=== PATIENT | male | born 1960 | race African-American/Black ===

== ENCOUNTER → 2017-05-23 | Outpatient (CLI) | payer MEDICARE, MEDICAID ==
[2017-05-23 17:30] LABS: HEMATOCRIT 38.2 % (37.9-51.0); HGB HCT DIFFERENCE -2.2; MEAN CORPUSCULAR HEMOGLOBIN 24.8 pg (27.0-33.4); MEAN CORPUSCULAR HGB CONC 31.4 g/dL (32.0-36.0); MEAN CORPUSCULAR VOLUME 79 fl (80-97); RED BLOOD COUNT 4.82 10^6/uL (4.35-5.55)
[2017-05-23 17:47] LABS: APPEARANCE,URINE CLEAR; BILIRUBIN,URINE NEGATIVE (NEGATIVE); GLUCOSE, URINE NEGATIVE (NEGATIVE); KETONES,URINE NEGATIVE (NEGATIVE); LEUKOCYTE ESTERASE,URINE NEGATIVE (NEGATIVE); NITRITE,URINE NEGATIVE (NEGATIVE); PROTEIN,URINE NEGATIVE (NEGATIVE); URINE SPECIFIC GRAVITY 1.013; UROBILINOGEN,URINE NEGATIVE mg/dL (<2.0)
[2017-05-23 17:55] LABS: ANION GAP 14 (5-19); BLOOD UREA NITROGEN 26 mg/dL (7-20); CALCIUM 9.3 mg/dL (8.4-10.2); CARBON DIOXIDE 23 mmol/L (22-30); CHLORIDE 107 mmol/L (98-107); GLUCOSE 126 mg/dL (75-110); POTASSIUM 4.4 mmol/L (3.6-5.0); SODIUM 143.9 mmol/L (137-145)
== END ==
LOC: OD 16:18
PROVIDERS: ATTEND Internal Medicine Nephrology
DX: I12.9 Hypertensive chronic kidney disease with stage 1 through stage 4 chronic kidney disease, or unspecified chronic kidney disease (principal); N18.3 Chronic kidney disease, stage 3 (moderate); M10.00 Idiopathic gout, unspecified site
CPT/HCPCS: 36415; 80048; 81001; 85027

== ENCOUNTER → 2018-05-08 | Outpatient (CLI) | payer MEDICARE, MEDICAID ==
[2018-05-08 13:47] LABS: HEMATOCRIT 36.3 % (37.9-51.0); HEMOGLOBIN 11.6 g/dL (13.5-17.0); MEAN CORPUSCULAR HGB CONC 31.9 g/dL (32.0-36.0); MEAN CORPUSCULAR VOLUME 78 fl (80-97); PLATELET COUNT 228 10^3/uL (150-450); RED BLOOD COUNT 4.64 10^6/uL (4.35-5.55); RED CELL DISTRIBUTION WIDTH 17.4 % (11.5-14.0); WHITE BLOOD COUNT 5.8 10^3/uL (4.0-10.5)
[2018-05-08 13:50] LABS: APPEARANCE,URINE CLEAR; BILIRUBIN,URINE NEGATIVE (NEGATIVE); COLOR,URINE YELLOW; GLUCOSE, URINE NEGATIVE (NEGATIVE); KETONES,URINE NEGATIVE (NEGATIVE); LEUKOCYTE ESTERASE,URINE NEGATIVE (NEGATIVE); NITRITE,URINE NEGATIVE (NEGATIVE); PROTEIN,URINE NEGATIVE (NEGATIVE); URINE SPECIFIC GRAVITY 1.016
[2018-05-08 14:09] LABS: ANION GAP 10 (5-19); BLOOD UREA NITROGEN 19 mg/dL (7-20); CALCIUM 9.1 mg/dL (8.4-10.2); CARBON DIOXIDE 25 mmol/L (22-30); CHLORIDE 111 mmol/L (98-107); GLUCOSE 83 mg/dL (75-110); POTASSIUM 4.7 mmol/L (3.6-5.0)
== END ==
LOC: OD 12:47
PROVIDERS: ATTEND Internal Medicine Nephrology
DX: I12.9 Hypertensive chronic kidney disease with stage 1 through stage 4 chronic kidney disease, or unspecified chronic kidney disease (principal); N18.3 Chronic kidney disease, stage 3 (moderate); M10.00 Idiopathic gout, unspecified site
CPT/HCPCS: 36415; 80048; 81001; 85027

== ENCOUNTER → 2018-07-16 | Outpatient (CLI) | payer MEDICARE, MEDICAID ==
--- NOTE | 2018-07-16 13:47 | RADIOLOGY REPORT (SQ) ---
EXAM DESCRIPTION: CHEST PA/LATERAL COMPLETED DATE/TIME: 07/16/2018 12:32 pm REASON FOR STUDY: COPD, J44.9 COMPARISON: 08/30/2012 EXAM PARAMETERS: NUMBER OF VIEWS: two views TECHNIQUE: Digital Frontal and Lateral radiographic views of the chest acquired. RADIATION DOSE: NA LIMITATIONS: Low lung volumes. FINDINGS: LUNGS AND PLEURA: No opacities, masses or pneumothorax. No pleural effusion. MEDIASTINUM AND HILAR STRUCTURES: No masses or contour abnormalities. HEART AND VASCULAR STRUCTURES: Heart normal size. No evidence for failure. BONES: No acute findings. HARDWARE: None in the chest. OTHER: No other significant finding. IMPRESSION: Negative chest allowing for low lung volumes. TECHNICAL DOCUMENTATION: JOB ID: [id number] [employer]- All Rights Reserved Reading location - IP/workstation name: [email or web address]
== END ==
LOC: OD 12:13
PROVIDERS: ATTEND Physician Assistant
DX: J44.9 Chronic obstructive pulmonary disease, unspecified (principal)
CPT/HCPCS: 71046

== ENCOUNTER → 2019-06-02 | Outpatient (CLI) | payer MEDICARE, MEDICAID ==
[2019-06-02 15:45] LABS: HEMATOCRIT 37.1 % (37.9-51.0); HEMOGLOBIN 11.7 g/dL (13.5-17.0); MEAN CORPUSCULAR HEMOGLOBIN 24.3 pg (27.0-33.4); MEAN CORPUSCULAR HGB CONC 31.7 g/dL (32.0-36.0); MEAN CORPUSCULAR VOLUME 77 fl (80-97); PLATELET COUNT 236 10^3/uL (150-450); RED BLOOD COUNT 4.83 10^6/uL (4.35-5.55); RED CELL DISTRIBUTION WIDTH 18.2 % (11.5-14.0)
[2019-06-02 15:46] LABS: APPEARANCE,URINE CLEAR; BILIRUBIN,URINE NEGATIVE (NEGATIVE); COLOR,URINE YELLOW; GLUCOSE, URINE NEGATIVE (NEGATIVE); KETONES,URINE NEGATIVE (NEGATIVE); LEUKOCYTE ESTERASE,URINE NEGATIVE (NEGATIVE); NITRITE,URINE NEGATIVE (NEGATIVE); PROTEIN,URINE NEGATIVE (NEGATIVE); URINE SPECIFIC GRAVITY 1.016
[2019-06-02 16:03] LABS: ANION GAP 9 (5-19); BLOOD UREA NITROGEN 22 mg/dL (7-20); CALCIUM 8.8 mg/dL (8.4-10.2); CARBON DIOXIDE 25 mmol/L (22-30); CHLORIDE 109 mmol/L (98-107); GLUCOSE 95 mg/dL (75-110); POTASSIUM 4.5 mmol/L (3.6-5.0); SODIUM 142.7 mmol/L (137-145)
== END ==
LOC: OD 15:00
PROVIDERS: ATTEND Physician Assistant Medical
DX: I12.9 Hypertensive chronic kidney disease with stage 1 through stage 4 chronic kidney disease, or unspecified chronic kidney disease (principal); N18.2 Chronic kidney disease, stage 2 (mild); M10.00 Idiopathic gout, unspecified site
CPT/HCPCS: 36415; 80048; 81001; 85027

== ENCOUNTER 2019-07-20 15:38 | Emergency (ER) | payer MEDICARE, MEDICAID ==
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
[2019-07-20 16:31] LABS: ABSOLUTE BASOPHILS # (AUTO) 0.1 10^3/uL (0.0-0.2); ABSOLUTE EOSINOPHILS # (AUTO) 0.2 10^3/uL (0.0-0.6); ABSOLUTE LYMPHOCYTES (AUTO) 1.3 10^3/uL (0.5-4.7); ABSOLUTE MONOCYTES (AUTO) 0.3 10^3/uL (0.1-1.4); ABSOLUTE NEUT (AUTO) 4.1 10^3/uL (1.7-8.2); BASOPHILS % (AUTO) 0.9 % (0-2); HEMATOCRIT 37.5 % (37.9-51.0); HEMOGLOBIN 11.9 g/dL (13.5-17.0); LYMPHOCYTES % (AUTO) 22.1 % (13-45); MEAN CORPUSCULAR HEMOGLOBIN 24.6 pg (27.0-33.4); MEAN CORPUSCULAR HGB CONC 31.7 g/dL (32.0-36.0); MEAN CORPUSCULAR VOLUME 78 fl (80-97); PLATELET COUNT 198 10^3/uL (150-450); RED BLOOD COUNT 4.83 10^6/uL (4.35-5.55); RED CELL DISTRIBUTION WIDTH 17.8 % (11.5-14.0); TOTAL CELLS COUNTED % (AUTO) 100 %; WHITE BLOOD COUNT 6.1 10^3/uL (4.0-10.5)
[2019-07-20 16:37] LABS: APPEARANCE,URINE CLEAR; BILIRUBIN,URINE NEGATIVE (NEGATIVE); COLOR,URINE YELLOW; GLUCOSE, URINE NEGATIVE (NEGATIVE); KETONES,URINE NEGATIVE (NEGATIVE); LEUKOCYTE ESTERASE,URINE NEGATIVE (NEGATIVE); NITRITE,URINE NEGATIVE (NEGATIVE); PROTEIN,URINE NEGATIVE (NEGATIVE); URINE SPECIFIC GRAVITY 1.014; UROBILINOGEN,URINE NEGATIVE mg/dL (<2.0)
[2019-07-20 16:49] LABS: ALBUMIN 3.9 g/dL (3.5-5.0); ALKALINE PHOSPHATASE 104 U/L (38-126); ANION GAP 7 (5-19); ASPARTATE AMINO TRANSFERASE 18 U/L (17-59); BILIRUBIN,DIRECT 0.3 mg/dL (0.0-0.4); BILIRUBIN,TOTAL 0.4 mg/dL (0.2-1.3); BLOOD UREA NITROGEN 24 mg/dL (7-20); CARBON DIOXIDE 26 mmol/L (22-30); CHLORIDE 106 mmol/L (98-107); GLUCOSE 124 mg/dL (75-110); POTASSIUM 4.5 mmol/L (3.6-5.0); TOTAL PROTEIN 7.4 g/dL (6.3-8.2)
[2019-07-20 16:50] LABS: URINE AMPHETAMINES SCREEN NEGATIVE; URINE BARBITURATES SCREEN NEGATIVE; URINE BENZODIAZEPINES SCREEN NEGATIVE; URINE COCAINE SCREEN NEGATIVE; URINE MARIJUANA (THC) SCREEN NEGATIVE; URINE METHADONE SCREEN NEGATIVE; URINE PHENCYCLIDINE SCREEN NEGATIVE
--- NOTE | 2019-07-20 17:59 | RADIOLOGY REPORT (SQ) ---
EXAM DESCRIPTION: CT HEAD WITHOUT COMPLETED DATE/TIME: 07/20/2019 5:37 pm REASON FOR STUDY: dizzy COMPARISON: None. TECHNIQUE: Axial images acquired through the brain without intravenous contrast. Images reviewed wi th bone, brain and subdural windows. Additional sagittal and coronal reconstructions were generated. Images stored on PACS. All CT scanners at this facility use dose modulation, iterative reconstruction, and/or weight based d osing when appropriate to reduce radiation dose to as low as reasonably achievable (ALARA). [facility]: Dose Right [facility]: CareDose [facility]: Dose Right [facility]: Teradose 4D [facility]: MET Tech RADIATION DOSE: CT Rad equipment meets quality standard of care and radiation dose reduction techniq ues were employed. CTDIvol: 53.2 mGy. DLP: 1097 mGy-cm. mGy. LIMITATIONS: None. FINDINGS: VENTRICLES: Normal size and contour. CEREBRUM: No masses. No hemorrhage. No midline shift. No evidence for acute infarction. Normal gra y/white matter differentiation. No areas of low density in the white matter. CEREBELLUM: No masses. No hemorrhage. No alteration of density. No evidence for acute infarction. EXTRAAXIAL SPACES: No fluid collections. No masses. ORBITS AND GLOBE: No intra- or extraconal masses. Normal contour of globe without masses. CALVARIUM: No fracture. PARANASAL SINUSES: Mucous retention cyst in the left maxillary sinus. SOFT TISSUES: No mass or hematoma. OTHER: No other significant finding. IMPRESSION: Left maxillary sinus disease with no acute intracranial imaging findings. EVIDENCE OF ACUTE STROKE: NO. COMMENT: Quality ID # [id number]: Final reports with documentation of one or more dose reduction techniques (e.g., Automated exposure control, adjustment of the mA and/or kV according to patient size, use of iterative reconstruction technique) TECHNICAL DOCUMENTATION: JOB ID: [id number] [employer]- All Rights Reserved Reading location - IP/workstation name: [email or web address]
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
[2019-07-20 19:07] VITALS: BP 150/90
--- NOTE | 2019-07-20 23:16 | EKG REPORT ---
SEVERITY:- NORMAL ECG - SINUS RHYTHM : Confirmed by: Jennifer Miller 20-Jul-2019 23:15:35
== END 2019-07-20 19:09 | disposition home or self-care (01) ==
LOC: ER 15:38
DX: J01.00 Acute maxillary sinusitis, unspecified (principal); R42 Dizziness and giddiness; R00.1 Bradycardia, unspecified; R53.1 Weakness; I50.9 Heart failure, unspecified; E78.00 Pure hypercholesterolemia, unspecified; I11.0 Hypertensive heart disease with heart failure; J44.9 Chronic obstructive pulmonary disease, unspecified; Z91.013 Allergy to seafood; Z88.0 Allergy status to penicillin
CPT/HCPCS: 36415; 70450; 80053; 80307; 81001; 82962; 83690; 84484; 85025; 93005; 93010; 99284

== ENCOUNTER 2019-08-26 10:47 | Emergency (ER) | payer MEDICARE, MEDICAID ==
--- NOTE | 2019-08-26 11:16 | ER Document Report ---
ED Medical Screen (RME) - General Chief Complaint: Shortness Of Breath Stated Complaint: WHEEZING,FEVER,HEADACHE,CHILLS Time Seen by Provider: 08/26/19 11:11 Primary Care Provider: NISHA RAMIREZ MD [Primary Care Provider] - Follow up as needed Mode of Arrival: Ambulatory Information source: Patient Notes: This 59-year-old male with history of COPD and asthma presents emergency department with cough and wheeze for the past week. Reports he has had increased shortness of breath since his CPAP machine broke 1 week ago. He reports is not due to be replaced until September. He denies chest pain. He denies fever vomiting diarrhea. Denies history of CHF. Respiratory rate even unlabored no wheeze noted. Message left for project manager/team coach inquiring possibility of helping this man replace his CPAP machine I have greeted and performed a rapid initial assessment of this patient. A comprehensive ED assessment and evaluation of the patient, analysis of test results and completion of the medical decision making process will be conducted by additional ED providers. Dictation of this chart was performed using voice recognition software; therefore, there may be some unintended grammatical errors. TRAVEL OUTSIDE OF THE [place] IN LAST 30 DAYS: No - Related Data Allergies/Adverse Reactions: Penicillins Allergy (Unknown, Verified 07/20/19 15:39) shellfish derived Allergy (Verified 07/20/19 15:39) Past Medical History - Social History Chew tobacco use (# tins/day): No Frequency of alcohol use: None Drug Abuse: None - Past Medical History Cardiac Medical History: Reports: Hx Congestive Heart Failure, Hx Hypercholesterolemia, Hx Hypertension Pulmonary Medical History: Reports: Hx Bronchitis, Hx COPD GI Medical History: Reports: Hx Gastroesophageal Reflux Disease, Hx Hiatal Hernia, Hx Ulcer Musculoskeltal Medical History: Reports Hx Arthritis, Reports Hx Gout, Reports Hx Musculoskeletal Deformity, Reports Hx Musculoskeletal Trauma Psychiatric Medical History: Reports: Hx Anxiety Traumatic Medical History: Reports: Hx Fractures - patella Past Surgical History: Reports: Hx Orthopedic Surgery - BL ankles, Hx Tonsillectomy - Immunizations Hx Diphtheria, Pertussis, Tetanus Vaccination: No Physical Exam - Vital signs Vitals: Temp Pulse Resp BP Pulse Ox 98.8 F 96 22 H 163/77 H 96 08/26/19 10:51 08/26/19 10:51 08/26/19 10:51 08/26/19 10:51 08/26/19 10:51 Course - Vital Signs Vital signs: Temp Pulse Resp BP Pulse Ox 98.8 F 96 22 H 163/77 H 96 08/26/19 10:51 08/26/19 10:51 08/26/19 10:51 08/26/19 10:51 08/26/19 10:51 Doctor's Discharge - Discharge Referrals: NISHA RAMIREZ MD [Primary Care Provider] - Follow up as needed
[2019-08-26 12:06] LABS: ABSOLUTE BASOPHILS # (AUTO) 0.1 10^3/uL (0.0-0.2); ABSOLUTE LYMPHOCYTES (AUTO) 0.7 10^3/uL (0.5-4.7); ABSOLUTE MONOCYTES (AUTO) 0.5 10^3/uL (0.1-1.4); ABSOLUTE NEUT (AUTO) 8.4 10^3/uL (1.7-8.2); BASOPHILS % (AUTO) 0.7 % (0-2); EOSINOPHILS % (AUTO) 0.4 % (0-6); HEMATOCRIT 37.3 % (37.9-51.0); HEMOGLOBIN 11.9 g/dL (13.5-17.0); MEAN CORPUSCULAR VOLUME 78 fl (80-97); MONOCYTES % (AUTO) 5.4 % (3-13); PLATELET COUNT 177 10^3/uL (150-450); RED BLOOD COUNT 4.78 10^6/uL (4.35-5.55); RED CELL DISTRIBUTION WIDTH 17.9 % (11.5-14.0); SEGMENTED NEUTROPHILS % (AUTO) 86.5 % (42-78); TOTAL CELLS COUNTED % (AUTO) 100 %; WHITE BLOOD COUNT 9.8 10^3/uL (4.0-10.5)
[2019-08-26 12:09] LABS: APPEARANCE,URINE CLEAR; BILIRUBIN,URINE NEGATIVE (NEGATIVE); COLOR,URINE YELLOW; GLUCOSE, URINE NEGATIVE (NEGATIVE); KETONES,URINE NEGATIVE (NEGATIVE); LEUKOCYTE ESTERASE,URINE NEGATIVE (NEGATIVE); NITRITE,URINE NEGATIVE (NEGATIVE); PROTEIN,URINE NEGATIVE (NEGATIVE); URINE SPECIFIC GRAVITY 1.018
[2019-08-26 12:30] LABS: ALBUMIN 3.9 g/dL (3.5-5.0); ALKALINE PHOSPHATASE 89 U/L (38-126); ANION GAP 9 (5-19); ASPARTATE AMINO TRANSFERASE 30 U/L (17-59); BILIRUBIN,DIRECT 0.1 mg/dL (0.0-0.4); BILIRUBIN,TOTAL 0.4 mg/dL (0.2-1.3); BLOOD UREA NITROGEN 26 mg/dL (7-20); CALCIUM 8.9 mg/dL (8.4-10.2); CARBON DIOXIDE 27 mmol/L (22-30); CHLORIDE 103 mmol/L (98-107); GLUCOSE 186 mg/dL (75-110); POTASSIUM 4.1 mmol/L (3.6-5.0); TOTAL PROTEIN 7.3 g/dL (6.3-8.2)
--- NOTE | 2019-08-26 12:58 | RADIOLOGY REPORT (SQ) ---
EXAM DESCRIPTION: CHEST 2 VIEWS COMPLETED DATE/TIME: 08/26/2019 12:13 pm REASON FOR STUDY: sob COMPARISON: 08/30/2012 EXAM PARAMETERS: NUMBER OF VIEWS: two views TECHNIQUE: Digital Frontal and Lateral radiographic views of the chest acquired. RADIATION DOSE: NA LIMITATIONS: none FINDINGS: LUNGS AND PLEURA: Mild pulmonary edema. Questionable focal opacification in the medial ri ght base. MEDIASTINUM AND HILAR STRUCTURES: No masses or contour abnormalities. HEART AND VASCULAR STRUCTURES: Cardiomegaly. BONES: No acute findings. HARDWARE: None in the chest. OTHER: No other significant finding. IMPRESSION: Cardiomegaly with mild pulmonary edema. Cannot exclude limited right lower lobe pneumon ia. TECHNICAL DOCUMENTATION: JOB ID: [id number] [employer]- All Rights Reserved Reading location - IP/workstation name: [email or web address]
[2019-08-26] MEDS ORDERED: IPRATROPIUM/ALBUTEROL 0.5-2.5 MG/3 ML AMPUL NEB ONE (14:04)
[2019-08-26] MEDS ORDERED: PREDNISONE 20 MG TABLET PO ONE (14:04)
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
[2019-08-26] MEDS ORDERED: DOXYCYCLINE HYCLATE 100 MG TABLET PO ONE (16:32)
[2019-08-26 17:09] VITALS: BP 162/82
--- NOTE | 2019-08-26 19:06 | EKG REPORT ---
SEVERITY:- NORMAL ECG - SINUS RHYTHM : Confirmed by: Christiano Fermin MD 26-Aug-2019 19:05:45
--- NOTE | 2019-08-26 19:06 | EKG REPORT ---
SEVERITY:- NORMAL ECG - SINUS RHYTHM : Confirmed by: Christiano Fermin MD 26-Aug-2019 19:05:55
== END 2019-08-26 16:50 | disposition home or self-care (01) ==
LOC: ER 10:47
DX: J81.0 Acute pulmonary edema (principal); G47.33 Obstructive sleep apnea (adult) (pediatric); Z91.19 Patient's noncompliance with other medical treatment and regimen; J44.9 Chronic obstructive pulmonary disease, unspecified; I11.9 Hypertensive heart disease without heart failure; R91.8 Other nonspecific abnormal finding of lung field; R05 Cough; R06.02 Shortness of breath; Z91.013 Allergy to seafood; I10 Essential (primary) hypertension; Z88.0 Allergy status to penicillin; Z87.891 Personal history of nicotine dependence; D72.829 Elevated white blood cell count, unspecified
CPT/HCPCS: 93005; 94640; 99285; 36415; 85025; 80053; 81001; 83880; 71046; 93010; 94660; A9270 ×2; J7512; J7620

== ENCOUNTER → 2019-09-13 | Outpatient (CLI) | payer MEDICARE, MEDICAID ==
[2019-09-13 11:35] LABS: ABSOLUTE BASOPHILS # (AUTO) 0.1 10^3/uL (0.0-0.2); ABSOLUTE EOSINOPHILS # (AUTO) 0.1 10^3/uL (0.0-0.6); ABSOLUTE MONOCYTES (AUTO) 0.4 10^3/uL (0.1-1.4); EOSINOPHILS % (AUTO) 2.4 % (0-6); HEMOGLOBIN 11.1 g/dL (13.5-17.0); LYMPHOCYTES % (AUTO) 18.6 % (13-45); MEAN CORPUSCULAR HEMOGLOBIN 24.8 pg (27.0-33.4); MEAN CORPUSCULAR HGB CONC 31.7 g/dL (32.0-36.0); MEAN CORPUSCULAR VOLUME 78 fl (80-97); MONOCYTES % (AUTO) 7.4 % (3-13); PLATELET COUNT 201 10^3/uL (150-450); RED BLOOD COUNT 4.48 10^6/uL (4.35-5.55); SEGMENTED NEUTROPHILS % (AUTO) 70.6 % (42-78); TOTAL CELLS COUNTED % (AUTO) 100 %; WHITE BLOOD COUNT 5.6 10^3/uL (4.0-10.5)
[2019-09-13 11:45] LABS: APPEARANCE,URINE CLEAR; BILIRUBIN,URINE NEGATIVE (NEGATIVE); COLOR,URINE YELLOW; GLUCOSE, URINE NEGATIVE (NEGATIVE); KETONES,URINE NEGATIVE (NEGATIVE); LEUKOCYTE ESTERASE,URINE NEGATIVE (NEGATIVE); NITRITE,URINE NEGATIVE (NEGATIVE); PROTEIN,URINE NEGATIVE (NEGATIVE); URINE SPECIFIC GRAVITY 1.014
[2019-09-13 11:57] LABS: ANION GAP 6 (5-19); BLOOD UREA NITROGEN 18 mg/dL (7-20); CALCIUM 8.9 mg/dL (8.4-10.2); CARBON DIOXIDE 28 mmol/L (22-30); CHLORIDE 106 mmol/L (98-107); GLUCOSE 103 mg/dL (75-110); IRON(TIBC) 54.7 ug/dL (49-181); PHOSPHORUS 3.6 mg/dL (2.5-4.5); POTASSIUM 4.6 mmol/L (3.6-5.0)
== END ==
LOC: OD 11:16
PROVIDERS: ATTEND Physician Assistant Medical
DX: I12.9 Hypertensive chronic kidney disease with stage 1 through stage 4 chronic kidney disease, or unspecified chronic kidney disease (principal); N18.3 Chronic kidney disease, stage 3 (moderate); D64.9 Anemia, unspecified; M10.00 Idiopathic gout, unspecified site
CPT/HCPCS: 36415; 80048; 81001; 82728; 83540; 83550; 83735; 83970; 84100; 85025

== ENCOUNTER → 2019-12-27 | Outpatient (CLI) | payer MEDICARE, MEDICAID ==
[2019-12-27 11:32] LABS: ABSOLUTE EOSINOPHILS # (AUTO) 0.2 10^3/uL (0.0-0.6); ABSOLUTE LYMPHOCYTES (AUTO) 0.9 10^3/uL (0.5-4.7); ABSOLUTE MONOCYTES (AUTO) 0.4 10^3/uL (0.1-1.4); ABSOLUTE NEUT (AUTO) 4.5 10^3/uL (1.7-8.2); BASOPHILS % (AUTO) 0.7 % (0-2); EOSINOPHILS % (AUTO) 3.2 % (0-6); HEMATOCRIT 35.5 % (37.9-51.0); HEMOGLOBIN 11.5 g/dL (13.5-17.0); LYMPHOCYTES % (AUTO) 14.9 % (13-45); MEAN CORPUSCULAR HEMOGLOBIN 25.4 pg (27.0-33.4); MEAN CORPUSCULAR HGB CONC 32.4 g/dL (32.0-36.0); MEAN CORPUSCULAR VOLUME 78 fl (80-97); MONOCYTES % (AUTO) 6.2 % (3-13); PLATELET COUNT 216 10^3/uL (150-450); RED BLOOD COUNT 4.53 10^6/uL (4.35-5.55); TOTAL CELLS COUNTED % (AUTO) 100 %
[2019-12-27 11:46] LABS: ANION GAP 8 (5-19); BLOOD UREA NITROGEN 24 mg/dL (7-20); CALCIUM 8.8 mg/dL (8.4-10.2); CARBON DIOXIDE 26 mmol/L (22-30); CHLORIDE 109 mmol/L (98-107); GLUCOSE 107 mg/dL (75-110); IRON(TIBC) 49.9 ug/dL (49-181); PHOSPHORUS 3.4 mg/dL (2.5-4.5); POTASSIUM 4.3 mmol/L (3.6-5.0)
[2019-12-27 12:14] LABS: APPEARANCE,URINE CLEAR; BILIRUBIN,URINE NEGATIVE (NEGATIVE); COLOR,URINE YELLOW; GLUCOSE, URINE NEGATIVE (NEGATIVE); KETONES,URINE NEGATIVE (NEGATIVE); LEUKOCYTE ESTERASE,URINE NEGATIVE (NEGATIVE); NITRITE,URINE NEGATIVE (NEGATIVE); PROTEIN,URINE NEGATIVE (NEGATIVE); URINE SPECIFIC GRAVITY 1.016; UROBILINOGEN,URINE NEGATIVE mg/dL (<2.0)
== END ==
LOC: OD 10:55
PROVIDERS: ATTEND Physician Assistant Medical
DX: I12.9 Hypertensive chronic kidney disease with stage 1 through stage 4 chronic kidney disease, or unspecified chronic kidney disease (principal); N18.3 Chronic kidney disease, stage 3 (moderate); D64.9 Anemia, unspecified
CPT/HCPCS: 36415; 80048; 81001; 82728; 83540; 83550; 83735; 83970; 84100; 85025

== ENCOUNTER 2020-08-24 11:55 | Emergency (ER) | payer MEDICARE, MEDICAID ==
[2020-08-24] MEDS ORDERED: NORMAL SALINE 1000 ML 1,000 ML IV ONE ×2 (12:11→13:51)
--- NOTE | 2020-08-24 12:14 | ER Document Report ---
ED Medical Screen (RME) - General Chief Complaint: Urinary Frequency Stated Complaint: EXCESSIVE URINATION,DRY MOUTH Primary Care Provider: NISHA RAMIREZ MD [Primary Care Provider] - Follow up as needed Mode of Arrival: Ambulatory Information source: Patient Notes: 60-year-old male presented to ED for frequent urination x2 weeks dry mouth. He states that his primary care doctor put him on antibiotics and prednisone. He states his sugar has been running high every day. His Accu-Chek right now is 383. He is not on any counter medications. He is never been diagnosed as diabetic. Patient is alert oriented respirations regular nonlabored at this time. I have greeted and performed a rapid initial assessment of this patient. A comprehensive ED assessment and evaluation of the patient, analysis of test results and completion of medical decision making process will be conducted by an additional ED providers. TRAVEL OUTSIDE OF THE [place] IN LAST 30 DAYS: No - Related Data Allergies/Adverse Reactions: Penicillins Allergy (Unknown, Verified 07/20/19 15:39) shellfish derived Allergy (Verified 07/20/19 15:39) Past Medical History - Past Medical History Cardiac Medical History: Reports: Hx Congestive Heart Failure, Hx Hypercholesterolemia, Hx Hypertension Pulmonary Medical History: Reports: Hx Bronchitis, Hx COPD GI Medical History: Reports: Hx Gastroesophageal Reflux Disease, Hx Hiatal Hernia, Hx Ulcer Musculoskeltal Medical History: Reports Hx Arthritis, Reports Hx Gout, Reports Hx Musculoskeletal Deformity, Reports Hx Musculoskeletal Trauma Psychiatric Medical History: Reports: Hx Anxiety Traumatic Medical History: Reports: Hx Fractures - patella Past Surgical History: Reports: Hx Orthopedic Surgery - BL ankles, Hx Tonsillectomy - Immunizations Hx Diphtheria, Pertussis, Tetanus Vaccination: No Physical Exam - Vital signs Vitals: Temp Pulse Resp BP Pulse Ox 98.2 F 56 L 20 155/82 H 96 08/24/20 12:08/24/20 12:08/24/20 12:08/24/20 12:08/24/20 12:01 Course - Vital Signs Vital signs: Temp Pulse Resp BP Pulse Ox 98.2 F 56 L 20 155/82 H 96 08/24/20 12:08/24/20 12:01 08/24/20 12:01 08/24/20 12:01 08/24/20 12:01 Doctor's Discharge - Discharge Referrals: NISHA RAMIREZ MD [Primary Care Provider] - Follow up as needed
[2020-08-24 12:50] LABS: ABSOLUTE EOSINOPHILS # (AUTO) 0.2 10^3/uL (0.0-0.6); ABSOLUTE LYMPHOCYTES (AUTO) 1.2 10^3/uL (0.5-4.7); ABSOLUTE MONOCYTES (AUTO) 0.5 10^3/uL (0.1-1.4); ABSOLUTE NEUT (AUTO) 5.6 10^3/uL (1.7-8.2); BASOPHILS % (AUTO) 0.6 % (0-2); HEMATOCRIT 40.5 % (37.9-51.0); HEMOGLOBIN 13.1 g/dL (13.5-17.0); LYMPHOCYTES % (AUTO) 15.8 % (13-45); MEAN CORPUSCULAR HEMOGLOBIN 25.5 pg (27.0-33.4); MEAN CORPUSCULAR HGB CONC 32.4 g/dL (32.0-36.0); MEAN CORPUSCULAR VOLUME 79 fl (80-97); MONOCYTES % (AUTO) 6.4 % (3-13); PLATELET COUNT 227 10^3/uL (150-450); RED BLOOD COUNT 5.14 10^6/uL (4.35-5.55); RED CELL DISTRIBUTION WIDTH 17.2 % (11.5-14.0); SEGMENTED NEUTROPHILS % (AUTO) 74.2 % (42-78); TOTAL CELLS COUNTED % (AUTO) 100 %; WHITE BLOOD COUNT 7.5 10^3/uL (4.0-10.5)
[2020-08-24 12:51] LABS: VENOUS BLOOD PCO2 46.6 mmHg (35-63); VENOUS BLOOD PH 7.35 (7.30-7.42)
[2020-08-24 12:53] LABS: APPEARANCE,URINE CLEAR; BILIRUBIN,URINE NEGATIVE (NEGATIVE); COLOR,URINE YELLOW; GLUCOSE, URINE >=500 mg/dL (NEGATIVE); KETONES,URINE NEGATIVE (NEGATIVE); LEUKOCYTE ESTERASE,URINE NEGATIVE (NEGATIVE); NITRITE,URINE NEGATIVE (NEGATIVE); PROTEIN,URINE 100 mg/dL (NEGATIVE); URINE SPECIFIC GRAVITY 1.017
[2020-08-24 13:08] LABS: ALBUMIN 4.4 g/dL (3.5-5.0); ALKALINE PHOSPHATASE 123 U/L (38-126); ANION GAP 11 (5-19); ASPARTATE AMINO TRANSFERASE 25 U/L (17-59); BILIRUBIN,DIRECT 0.2 mg/dL (0.0-0.4); BILIRUBIN,TOTAL 0.5 mg/dL (0.2-1.3); BLOOD UREA NITROGEN 30 mg/dL (7-20); CALCIUM 9.4 mg/dL (8.4-10.2); CARBON DIOXIDE 25 mmol/L (22-30); CHLORIDE 103 mmol/L (98-107); GLUCOSE 385 mg/dL (75-110); POTASSIUM 4.6 mmol/L (3.6-5.0); TOTAL PROTEIN 7.9 g/dL (6.3-8.2)
[2020-08-24] MEDS ORDERED: INSULIN REG, HUMAN 100 UNIT/ML 3 ML VIAL (PYX) SUBCUT ONE ×2 (13:52→15:42)
--- NOTE | 2020-08-24 13:55 | ER Document Report ---
ED General - General Chief Complaint: High Blood Sugar Stated Complaint: EXCESSIVE URINATION,DRY MOUTH Time Seen by Provider: 08/24/20 12:54 Primary Care Provider: NISHA RAMIREZ MD [Primary Care Provider] - Follow up as needed Mode of Arrival: Ambulatory TRAVEL OUTSIDE OF THE [place] IN LAST 30 DAYS: No - HPI Notes: Chief complaint: Blurred vision, generalized weakness, frequent urination and excessive thirst for 2 weeks History of present illness: 60 old obese male with history of hypertension and COPD but no known history of diabetes mellitus followed by by Dr. Ramirez structure to come here by his doctor after he called the office reporting 2-week history of blurred vision, generalized weakness, frequent urination and excessive thirst accompanied by about a 15 pound weight loss. Positive family history of diabetes mellitus type 2. - Related Data Allergies/Adverse Reactions: Penicillins Allergy (Unknown, Verified 07/20/19 15:39) shellfish derived Allergy (Verified 07/20/19 15:39) Home Medications: Losartan, Atenolol, Spiriva Past Medical History - General Information source: Patient, Relative - Social History Smoking Status: Never Smoker Frequency of alcohol use: None Drug Abuse: None Family History: Reviewed & Not Pertinent, Arthritis, CAD, DM, Hyperlipidemia, Hypertension, Malignancy, Thyroid Disfunction - Past Medical History Cardiac Medical History: Reports: Hx Congestive Heart Failure, Hx Hypercholesterolemia, Hx Hypertension Pulmonary Medical History: Reports: Hx Bronchitis, Hx COPD Endocrine Medical History: Denies: Hx Diabetes Mellitus Type 1, Hx Diabetes Mellitus Type 2 GI Medical History: Reports: Hx Gastroesophageal Reflux Disease, Hx Hiatal Hernia, Hx Ulcer Musculoskeletal Medical History: Reports Hx Arthritis, Reports Hx Gout, Reports Hx Musculoskeletal Deformity, Reports Hx Musculoskeletal Trauma Psychiatric Medical History: Reports: Hx Anxiety Traumatic Medical History: Reports: Hx Fractures - patella Past Surgical History: Reports: Hx Orthopedic Surgery - BL ankles, Hx Tonsillectomy - Immunizations Hx Diphtheria, Pertussis, Tetanus Vaccination: No Review of Systems - Review of Systems Notes: Constitutional: Negative for fever. HENT: Negative for sore throat. Eyes: Blurred vision. Cardiovascular: Negative for chest pain. Respiratory: Negative for shortness of breath. Gastrointestinal: Negative for abdominal pain, vomiting or diarrhea. Genitourinary: Negative for dysuria. Musculoskeletal: Negative for back pain. Skin: Negative for rash. Neurological: Negative for headaches, focal weakness or numbness. 10 point ROS negative except as marked above and in HPI. Physical Exam - Vital signs Vitals: Temp Pulse Resp BP Pulse Ox 98.2 F 56 L 20 155/82 H 96 08/24/20 12:01 08/24/20 12:01 08/24/20 12:01 08/24/20 12:01 08/24/20 12:01 - Notes Notes: GENERAL: Obese male approximately stated age appearing in no acute distress. SKIN: Good turgor no rashes. HEAD: Normocephalic atraumatic. EYES: PERRLA. EOMI. Conjunctivae and sclerae clear. EARS: CANALS AND TMS CLEAR. NOSE: CLEAR. MOUTH: Tacky oral mucosa. Good dentition. No stridor or edema. No drooling. NECK: Supple. No masses or thyromegaly. No adenopathy. Carotids 2+ without bruits. No JVD. BACK: Symmetrical without tenderness. CHEST: Respirations unlabored. Breath sounds clear and symmetrical. HEART: Regular rhythm. No murmur gallop or rub. ABDOMEN: Morbid obesity. Soft nontender without masses, organomegaly or rebound. Bowel sounds normally active. No bruits. GENITALIA: Deferred. EXTREMITIES: No edema. No calf tenderness. Cap refill less than 1.5 seconds. Dorsalis pedis and posterior tibial pulses 3+ and symmetrical. NEUROLOGICAL: GCS 15. Alert and oriented x3. Normal gait. Fluent speech. Cranial nerves II through XII intact. Sensorimotor and cerebellar normal. Normal tone. PSYCHIATRIC: Appropriate affect. Course - Re-evaluation Re-evalutation: 08/24/20 15:53 Patient has apparent new onset type 2 diabetes. Venous pH is normal. Bicarb is normal. Initial blood sugar 385. Patient looks mildly dehydrated otherwise appears very stable. He is not vomiting. He is receiving 2 L of normal saline IV will get some subcu insulin to get his sugar down below 300. Anticipate he can be managed as an outpatient with initiation of metformin and follow-up with primary care physician. I have paged his cardiac nurse specialist, Dr. Ramirez and waiting for return call at this time. 08/24/20 17:40 Blood sugar is down to 200. Patient feels fine wants to go home. Findings were discussed with his cardiac nurse specialist Dr. Ramirez who agrees to see the patient for office follow-up and we will initiate therapy with oral metformin. I have reviewed a "no sugar and sweets" diet with patient for now until he can get formal dietary counseling. Findings, clinical impression and plan of treatment have been discussed with patient/family. Understanding of current findings and recommendations has been acknowledged by them and there is agreement regarding disposition and follow-up. - Vital Signs Vital signs: Temp Pulse Resp BP Pulse Ox 98.7 F 52 L 18 143/76 H 100 08/24/20 16:11 08/24/20 16:11 08/24/20 16:11 08/24/20 16:11 08/24/20 16:11 - Laboratory Result Diagrams: 08/24/20 12:30 08/24/20 12:30 Laboratory results interpreted by me: 08/24/20 08/24/20 08/24/20 12:10 12:21 12:30 Hgb 13.1 L MCV 79 L MCH 25.5 L RDW 17.2 H BUN Creatinine Est GFR ( Amer) Est GFR (MDRD) Non-Af Glucose POC Glucose 358 H Urine Protein 100 H Urine Glucose (UA) >=500 H Urine Urobilinogen 2.0 H 08/24/20 08/24/20 08/24/20 12:30 15:09 16:56 Hgb MCV MCH RDW BUN 30 H Creatinine 1.79 H Est GFR ( Amer) 47 L Est GFR (MDRD) Non-Af 39 L Glucose 385 H POC Glucose 335 H 229 H Urine Protein Urine Glucose (UA) Urine Urobilinogen - Diagnostic Test Radiology reviewed: Reports reviewed - Chest x-ray per radiologist: Cardiomegaly - EKG Interpretation by Me Additional EKG results interpreted by me: 08/24/20 15:52 Indication for study: New onset hyperglycemia Rate 49 Sinus bradycardia Normal axis Normal intervals No acute ST changes No prior tracing for comparison Interpretation: Sinus bradycardia Discharge - Discharge Clinical Impression: New onset type 1 diabetes mellitus, uncontrolled Condition: Stable Disposition: HOME, SELF-CARE Additional Instructions: Diabetes You have an abnormally high blood sugar, suspicious for diabetes. Not all high blood sugar requires long-term treatment. High blood sugar can be due to medications, , or the stress of illness. (These cases are "borderline diabetes.") If the doctor feels your high blood sugar might get better with time, you may not require treatment now. You will be scheduled for further evaluation. It's very important that you follow through. Uncontrolled high blood sugar leads to early heart disease, strokes, nerve damage, eye damage, and kidney damage. All diabetics should follow a diet designed to control the blood sugar. Overweight diabetics should exercise regularly and lose weight. If this is not sufficient to control the blood sugar, pills or insulin shots are necessary. Younger people who develop diabetes almost always require insulin daily. Home testing of blood sugars or urine sugar is required. Diabetic teaching is available to help you figure insulin doses and monitor the blood sugar. Call the physician if there is faintness, excess sleepiness, or very rapid breathing. If hypoglycemia (LOW blood sugar) develops, symptoms are shakiness, weakness, sweating, and confusion. In this case, you should eat or drink something with sugar at once. Continue regular medications. Add new medication as prescribed today. Return here as needed for new or worsening symptoms. Call your physician tomorrow morning after 8 AM to arrange office follow-up as soon as possible. Return here as needed for new or worsening symptoms: Pain that is worsening or unimproved Uncontrolled vomiting High fever or shaking chills Overall worsening Prescriptions: Metformin HCl [Glucophage 500 mg Tablet] 500 mg PO BID #60 tablet Referrals: NISHA RAMIREZ MD [Primary Care Provider] - Follow up as needed
[2020-08-24] MEDS ORDERED: INSULIN REG, HUMAN 100 UNIT/ML 3 ML VIAL (PYX) ONE (14:07)
--- NOTE | 2020-08-24 14:22 | RADIOLOGY REPORT (SQ) ---
EXAM DESCRIPTION: CHEST SINGLE VIEW IMAGES COMPLETED DATE/TIME: 08/24/2020 2:12 pm REASON FOR STUDY: HTN COMPARISON: 08/26/2019. NUMBER OF VIEWS: One view. TECHNIQUE: Single frontal radiographic view of the chest acquired. LIMITATIONS: None. FINDINGS: LUNGS AND PLEURA: No opacities, masses or pneumothorax. No pleural effusion. MEDIASTINUM AND HILAR STRUCTURES: No masses. Contour normal. HEART AND VASCULAR STRUCTURES: Heart enlarged without failure. Normal vasculature. BONES: No acute findings. HARDWARE: None in the chest. OTHER: No other significant finding. IMPRESSION: HEART ENLARGED WITHOUT FAILURE. NO OTHER SIGNIFICANT RADIOGRAPHIC FINDING IN THE CHEST. TECHNICAL DOCUMENTATION: JOB ID: [id number] 2010 [employer]- All Rights Reserved Reading location - IP/workstation name: [email or web address]
[2020-08-24 17:57] VITALS: BP 145/83
--- NOTE | 2020-08-24 19:24 | EKG REPORT ---
SEVERITY:- ABNORMAL ECG - SINUS BRADYCARDIA NONSPECIFIC INTRAVENTRICULAR CONDUCTION DELAY : Confirmed by: Nicolle Loya MD 24-Aug-2020 19:24:23
== END 2020-08-24 17:55 | disposition home or self-care (01) ==
LOC: ER 11:55
DX: E10.65 Type 1 diabetes mellitus with hyperglycemia (principal); R63.4 Abnormal weight loss; R53.1 Weakness; R35.0 Frequency of micturition; R63.1 Polydipsia; R00.1 Bradycardia, unspecified; H53.8 Other visual disturbances; J44.9 Chronic obstructive pulmonary disease, unspecified; I11.0 Hypertensive heart disease with heart failure; I50.9 Heart failure, unspecified; E66.9 Obesity, unspecified; Z88.0 Allergy status to penicillin; Z91.013 Allergy to seafood
CPT/HCPCS: 93005; 99285; 96360; 96361; 36415; 82962; 85025; 80053; 81001; 84484; 82803; 71045; 93010; A9270; J7030; J1815

== ENCOUNTER 2020-09-22 17:29 | Emergency (ER) | payer MEDICARE, MEDICAID ==
[2020-09-22 17:44] VITALS: BP 152/77
--- NOTE | 2020-09-22 18:16 | ER Document Report ---
ED Medical Screen (RME) - General Chief Complaint: Fever Stated Complaint: FEVER,COUGH,HEADACHE Time Seen by Provider: 09/22/20 18:05 Primary Care Provider: NISHA RAMIREZ MD [Primary Care Provider] - Follow up as needed Mode of Arrival: Ambulatory Information source: Patient Notes: Patient is an obese 60-year-old -[place] male with numerous comorbidities coming in today with 2 to 3 days of headache, body aches, cough, and fever. Significant other also being seen for body aches. Patient reports he has had Covid testing [place] Results are not back yet. TRAVEL OUTSIDE OF THE [place] IN LAST 30 DAYS: No - Related Data Allergies/Adverse Reactions: Penicillins Allergy (Unknown, Verified 07/20/19 15:39) shellfish derived Allergy (Verified 07/20/19 15:39) Past Medical History - Social History Chew tobacco use (# tins/day): No Frequency of alcohol use: None Drug Abuse: None - Past Medical History Cardiac Medical History: Reports: Hx Congestive Heart Failure, Hx Hypercholesterolemia, Hx Hypertension Pulmonary Medical History: Reports: Hx Bronchitis, Hx COPD Endocrine Medical History: Denies: Hx Diabetes Mellitus Type 1, Hx Diabetes Mellitus Type 2 GI Medical History: Reports: Hx Gastroesophageal Reflux Disease, Hx Hiatal Hernia, Hx Ulcer Musculoskeltal Medical History: Reports Hx Arthritis, Reports Hx Gout, Reports Hx Musculoskeletal Deformity, Reports Hx Musculoskeletal Trauma Psychiatric Medical History: Reports: Hx Anxiety Traumatic Medical History: Reports: Hx Fractures - patella Past Surgical History: Reports: Hx Orthopedic Surgery - BL ankles, Hx Tonsillectomy - Immunizations Hx Diphtheria, Pertussis, Tetanus Vaccination: No Physical Exam - Vital signs Vitals: Temp Pulse Resp BP Pulse Ox 99.1 F 70 16 152/77 H 98 09/22/20 17:43 09/22/20 17:43 09/22/20 17:43 09/22/20 17:43 09/22/20 17:43 Course - Vital Signs Vital signs: Temp Pulse Resp BP Pulse Ox 99.1 F 70 16 152/77 H 98 09/22/20 17:43 09/22/20 17:43 09/22/20 17:43 09/22/20 17:43 09/22/20 17:43 Doctor's Discharge - Discharge Referrals: NISHA RAMIREZ MD [Primary Care Provider] - Follow up as needed
--- NOTE | 2020-09-22 19:05 | RADIOLOGY REPORT (SQ) ---
EXAM DESCRIPTION: CHEST SINGLE VIEW IMAGES COMPLETED DATE/TIME: 09/22/2020 6:54 pm REASON FOR STUDY: cough COMPARISON: 08/24/2020 EXAM PARAMETERS: NUMBER OF VIEWS: One view. TECHNIQUE: Single frontal radiographic view of the chest acquired. RADIATION DOSE: NA LIMITATIONS: None. FINDINGS: LUNGS AND PLEURA: Elevated left hemidiaphragm. No infiltrate or effusion. MEDIASTINUM AND HILAR STRUCTURES: No masses. Contour normal. HEART AND VASCULAR STRUCTURES: Cardiomegaly. No ben pulmonary edema. BONES: No acute findings. HARDWARE: None in the chest. OTHER: No other significant finding. IMPRESSION: Cardiomegaly with no ben pulmonary edema. TECHNICAL DOCUMENTATION: JOB ID: [id number] 2010 [employer]- All Rights Reserved Reading location - IP/workstation name: [email or web address]
[2020-09-22 20:20] LABS: ABSOLUTE EOSINOPHILS # (AUTO) 0.2 10^3/uL (0.0-0.6); ABSOLUTE LYMPHOCYTES (AUTO) 0.9 10^3/uL (0.5-4.7); ABSOLUTE MONOCYTES (AUTO) 0.5 10^3/uL (0.1-1.4); ABSOLUTE NEUT (AUTO) 3.8 10^3/uL (1.7-8.2); BASOPHILS % (AUTO) 0.4 % (0-2); EOSINOPHILS % (AUTO) 2.8 % (0-6); HEMATOCRIT 38.2 % (37.9-51.0); HEMOGLOBIN 12.6 g/dL (13.5-17.0); LYMPHOCYTES % (AUTO) 16.8 % (13-45); MEAN CORPUSCULAR HEMOGLOBIN 26.2 pg (27.0-33.4); MEAN CORPUSCULAR HGB CONC 32.9 g/dL (32.0-36.0); MEAN CORPUSCULAR VOLUME 80 fl (80-97); MONOCYTES % (AUTO) 9.9 % (3-13); PLATELET COUNT 181 10^3/uL (150-450); RED CELL DISTRIBUTION WIDTH 17.9 % (11.5-14.0); SEGMENTED NEUTROPHILS % (AUTO) 70.1 % (42-78); TOTAL CELLS COUNTED % (AUTO) 100 %; WHITE BLOOD COUNT 5.5 10^3/uL (4.0-10.5)
[2020-09-22 20:41] LABS: ALBUMIN 4.3 g/dL (3.5-5.0); ALKALINE PHOSPHATASE 85 U/L (38-126); ANION GAP 11 (5-19); ASPARTATE AMINO TRANSFERASE 42 U/L (17-59); BILIRUBIN,DIRECT 0.2 mg/dL (0.0-0.4); BILIRUBIN,TOTAL 0.3 mg/dL (0.2-1.3); BLOOD UREA NITROGEN 31 mg/dL (7-20); CARBON DIOXIDE 27 mmol/L (22-30); CHLORIDE 102 mmol/L (98-107); GLUCOSE 116 mg/dL (75-110); POTASSIUM 4.5 mmol/L (3.6-5.0); TOTAL PROTEIN 7.4 g/dL (6.3-8.2)
[2020-09-22 20:57] LABS: A TYPE INFLUENZA AG NEGATIVE (NEGATIVE); B INFLUENZA AG NEGATIVE (NEGATIVE)
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
[2020-09-22] MEDS ORDERED: BENZONATATE 100 MG CAPSULE PO ONE (22:14)
[2020-09-22] MEDS ORDERED: GUAIFENESIN 600 MG TABLET.SA PO ONE (22:14)
[2020-09-22] MEDS ORDERED: ACETAMINOPHEN 325 MG TABLET PO ONE (22:36)
== END 2020-09-22 22:48 | disposition home or self-care (01) ==
LOC: ER 17:29
DX: B34.9 Viral infection, unspecified (principal); J44.9 Chronic obstructive pulmonary disease, unspecified; R51.9 Headache, unspecified; R05 Cough; R53.83 Other fatigue; R50.9 Fever, unspecified; R19.4 Change in bowel habit; M79.10 Myalgia, unspecified site; I10 Essential (primary) hypertension; D64.9 Anemia, unspecified; Z87.891 Personal history of nicotine dependence; Z88.0 Allergy status to penicillin; Z91.013 Allergy to seafood; Z20.828 Contact with and (suspected) exposure to other viral communicable diseases
CPT/HCPCS: 99284; 36415; 85025; 80053; 87804; 71045; A9270 ×3

== ENCOUNTER 2020-09-26 08:49 | Inpatient (IN) | payer MEDICARE, MEDICAID ==
[2020-09-26 11:40] LABS: ABSOLUTE LYMPHOCYTES (AUTO) 0.5 10^3/uL (0.5-4.7); ABSOLUTE MONOCYTES (AUTO) 0.3 10^3/uL (0.1-1.4); ABSOLUTE NEUT (AUTO) 2.9 10^3/uL (1.7-8.2); BASOPHILS % (AUTO) 0.2 % (0-2); EOSINOPHILS % (AUTO) 0.3 % (0-6); HEMATOCRIT 36.7 % (37.9-51.0); HEMOGLOBIN 11.7 g/dL (13.5-17.0); LYMPHOCYTES % (AUTO) 14.3 % (13-45); MEAN CORPUSCULAR HEMOGLOBIN 25.2 pg (27.0-33.4); MEAN CORPUSCULAR HGB CONC 31.9 g/dL (32.0-36.0); MEAN CORPUSCULAR VOLUME 79 fl (80-97); MONOCYTES % (AUTO) 7.5 % (3-13); PLATELET COUNT 156 10^3/uL (150-450); RED BLOOD COUNT 4.64 10^6/uL (4.35-5.55); RED CELL DISTRIBUTION WIDTH 17.4 % (11.5-14.0); SEGMENTED NEUTROPHILS % (AUTO) 77.7 % (42-78); TOTAL CELLS COUNTED % (AUTO) 100 %; WHITE BLOOD COUNT 3.8 10^3/uL (4.0-10.5)
[2020-09-26 12:03] LABS: ALBUMIN 4.1 g/dL (3.5-5.0); ALKALINE PHOSPHATASE 78 U/L (38-126); ANION GAP 11 (5-19); ASPARTATE AMINO TRANSFERASE 56 U/L (17-59); BILIRUBIN,DIRECT 0.1 mg/dL (0.0-0.4); BILIRUBIN,TOTAL 0.3 mg/dL (0.2-1.3); BLOOD UREA NITROGEN 26 mg/dL (7-20); CALCIUM 8.3 mg/dL (8.4-10.2); CARBON DIOXIDE 26 mmol/L (22-30); CHLORIDE 101 mmol/L (98-107); GLUCOSE 120 mg/dL (75-110); POTASSIUM 4.4 mmol/L (3.6-5.0); TOTAL PROTEIN 7.4 g/dL (6.3-8.2)
--- NOTE | 2020-09-26 12:44 | RADIOLOGY REPORT (SQ) ---
EXAM DESCRIPTION: CHEST SINGLE VIEW IMAGES COMPLETED DATE/TIME: 09/26/2020 12:08 pm REASON FOR STUDY: SHORTNESS OF BREATH, CONGESTION COMPARISON: 09/22/2020. EXAM PARAMETERS: NUMBER OF VIEWS: One view. TECHNIQUE: Single frontal radiographic view of the chest acquired. RADIATION DOSE: NA LIMITATIONS: Limited due to the patient's body habitus. FINDINGS: LUNGS AND PLEURA: Elevated left hemidiaphragm. Probable bilateral scattered airspace dise ase. MEDIASTINUM AND HILAR STRUCTURES: No masses. Contour normal. HEART AND VASCULAR STRUCTURES: Cardiomegaly. BONES: No acute findings. HARDWARE: None in the chest. OTHER: No other significant finding. IMPRESSION: LIMITED STUDY. CARDIOMEGALY. SUSPECT BILATERAL AIRSPACE DISEASE, PNEUMONIA VERSUS DEVE LOPING EDEMA. TECHNICAL DOCUMENTATION: JOB ID: [id number] 2010 [employer]- All Rights Reserved Reading location - IP/workstation name: [email or web address]
[2020-09-26 13:03] LABS: APPEARANCE,URINE SLIGHTLY-CLOUDY; BILIRUBIN,URINE NEGATIVE (NEGATIVE); COLOR,URINE YELLOW; GLUCOSE, URINE NEGATIVE (NEGATIVE); KETONES,URINE NEGATIVE (NEGATIVE); LEUKOCYTE ESTERASE,URINE NEGATIVE (NEGATIVE); NITRITE,URINE NEGATIVE (NEGATIVE); PROTEIN,URINE >=500 mg/dL (NEGATIVE); URINE SPECIFIC GRAVITY 1.018; UROBILINOGEN,URINE NEGATIVE mg/dL (<2.0)
--- NOTE | 2020-09-26 15:18 | ER Document Report ---
ED General - General Chief Complaint: Breathing Difficulty Stated Complaint: DIFFICULTY BREATHING CONGESTION Time Seen by Provider: 09/26/20 13:09 Primary Care Provider: NISHA RAMIREZ MD [Primary Care Provider] - Follow up as needed Mode of Arrival: Ambulatory Information source: Patient TRAVEL OUTSIDE OF THE [place] IN LAST 30 DAYS: No - HPI Notes: Patient presents with shortness of breath for approximately 5 days. He states that his stepson was recently diagnosed with Covid and is currently hospitalized at [facility] for this. He states he has had cough shortness of breath with fever sweats and chills for the last 5 days. He states it is progressed now to where he is significantly short of breath. Patient denies vomiting or diarrhea. He states he did have a Covid test approximately 4 days ago but he has not yet received the results of this test. His symptoms are moderate to severe and constant. They are worse with exertion and better with rest. - Related Data Allergies/Adverse Reactions: Penicillins Allergy (Unknown, Verified 09/26/20 10:35) shellfish derived Allergy (Verified 09/26/20 10:35) Past Medical History - General Information source: Patient - Social History Smoking Status: Former Smoker Frequency of alcohol use: None Drug Abuse: None Family History: Reviewed & Not Pertinent, Arthritis, CAD, DM, Hyperlipidemia, Hypertension, Malignancy, Thyroid Disfunction - Past Medical History Cardiac Medical History: Reports: Hx Congestive Heart Failure, Hx Hypercholesterolemia, Hx Hypertension Pulmonary Medical History: Reports: Hx Bronchitis, Hx COPD Endocrine Medical History: Reports: Hx Diabetes Mellitus Type 1, Hx Diabetes Mellitus Type 2 Renal/ Medical History: Reports: Hx End Stage Renal Disease GI Medical History: Reports: Hx Gastroesophageal Reflux Disease, Hx Hiatal Hernia, Hx Ulcer Musculoskeletal Medical History: Reports Hx Arthritis, Reports Hx Gout, Reports Hx Musculoskeletal Deformity, Reports Hx Musculoskeletal Trauma Psychiatric Medical History: Reports: Hx Anxiety Traumatic Medical History: Reports: Hx Fractures - patella Past Surgical History: Reports: Hx Orthopedic Surgery - BL ankles, Hx Tonsill ectomy - Immunizations Hx Diphtheria, Pertussis, Tetanus Vaccination: No Review of Systems - Review of Systems Constitutional: Chills, Fever Cardiovascular: denies: Chest pain, Palpitations Respiratory: Cough, Short of breath -: Yes All other systems reviewed and negative Physical Exam - Vital signs Vitals: Temp Pulse Resp BP Pulse Ox 98.8 F 68 20 153/82 H 94 09/26/20 08:53 09/26/20 08:53 09/26/20 08:53 09/26/20 08:53 09/26/20 08:53 Interpretation: Normal - General General appearance: Appears well, Alert - HEENT Head: Normocephalic, Atraumatic Eyes: Normal Pupils: PERRL - Respiratory Respiratory status: No respiratory distress Chest status: Nontender Breath sounds: Decreased air movement, Wheezing Chest palpation: Normal - Cardiovascular Rhythm: Regular Heart sounds: Normal auscultation Murmur: No - Abdominal Inspection: Normal Distension: No distension Bowel sounds: Normal Tenderness: Nontender Organomegaly: No organomegaly - Back Back: Normal, Nontender - Extremities General upper extremity: Normal inspection, Nontender, Normal color, Normal ROM, Normal temperature General lower extremity: Normal inspection, Nontender, Normal color, Normal ROM, Normal temperature, Normal weight bearing. No: Jerry's sign - Neurological Neuro grossly intact: Yes Cognition: Normal Orientation: AAOx4 [place] Coma Scale Eye Opening: Spontaneous Gennaro Coma Scale Verbal: Oriented [place] Coma Scale Motor: Obeys Commands [place] Coma Scale Total: 15 Speech: Normal Motor strength normal: LUE, RUE, LLE, RLE Sensory: Normal - Psychological Associated symptoms: Normal affect, Normal mood - Skin Skin Temperature: Warm Skin Moisture: Dry Skin Color: Normal Course - Re-evaluation Re-evalutation: 09/26/20 15:16 Patient presents with fevers chills and a history of being exposed to Covid. Patient has an x-ray consistent with Covid. Patient will be admitted and raul ated as a Covid pneumonia secondary to having significant hypoxia with ambulation. The patient was evaluated during a global COVID-19 pandemic and that diagnosis was suspected/considered upon their initial presentation. Their evaluation, treatment and testing was consistent with current guidelines for patients who present with complaints or symptoms and may be related to COVID-19. - Vital Signs Vital signs: Temp Pulse Resp BP Pulse Ox 98.8 F 68 20 153/82 H 94 09/26/20 08:53 09/26/20 08:53 09/26/20 08:53 09/26/20 08:53 09/26/20 08:53 - Laboratory Result Diagrams: 09/26/20 11:25 09/26/20 11:25 Laboratory results interpreted by me: 09/26/20 09/26/20 09/26/20 11:25 11:25 12:30 WBC 3.8 L Hgb 11.7 L Hct 36.7 L MCV 79 L MCH 25.2 L MCHC 31.9 L RDW 17.4 H BUN 26 H Creatinine 1.97 H Est GFR ( Amer) 42 L Est GFR (MDRD) Non-Af 35 L Glucose 120 H Calcium 8.3 L ALT 51 H Urine Protein >=500 H Urine Blood MODERATE H - Diagnostic Test Radiology reviewed: Image reviewed, Reports reviewed Discharge - Discharge Clinical Impression: Pneumonia due to COVID-19 virus Condition: Serious Disposition: ADMITTED INPATIENT Admitting Provider: Ruth (Hospitalist) Unit Admitted: Medical Floor Referrals: NISHA RAMIREZ MD [Primary Care Provider] - Follow up as needed
[2020-09-26] MEDS ORDERED: DEXTROSE 50%-WATER 25 GM/50 ML DISP.SYRIN IV PRN ×2 (15:50)
[2020-09-26] MEDS ORDERED: DEXTROSE 40% GEL 15 GM TUBE PO PRN ×2 (15:50)
[2020-09-26] MEDS ORDERED: GLUCAGON,HUMAN RECOMB 1 MG INJ IM PRN (15:50)
--- NOTE | 2020-09-26 16:07 | PDOC H&P ---
History of Present Illness Admission Date/PCP: 09/26/20 15:49 NISHA RAMIREZ History of Present Illness: LAYLA FRENCH is a 60 year old male with a history of morbid obesity, [id number] diabetes mellitus, COPD, hypertension, chronic kidney disease, and gout who said he started to feel sick about a week ago. On Friday he and his ex- went to go get tested for coronavirus. He said he has not been notified of the results. He said he thinks he may have had a fever last we ek but he does not think he has had anything like a fever in the last few days. He has had some cough and some shortness of breath when he ambulates but his breathing at rest is okay. He has been able to sleep, and he uses a CPAP. He has been eating and drinking without difficulty. He said he has not noticed any change in his sense of taste or smell. He said he came to the ER a few days ago and they gave him some Tessalon. He said that his ex-'s son tested positive for coronavirus and the patient had spent some time around this person, I cannot remember if the patient said that this person is in the hospital at this time. He came back to the ER today because he still gets a little winded whenever he walks. His oxygen saturations at rest are in the mid 90s. When he gets up and walks on room air his saturations dropped into the 80s but whenever he sits down to rest he comes back up into the mid upper 90s. He is afebrile here. He has some creatinine elevation that is at its baseline. Chest x-ray was limited by his body habitus, possible airspace opacities were suggested given the limitations. Past Medical History Cardiac Medical History: Reports: Congestive Heart Failure, Hyperlipidema, Hypertension Pulmonary Medical History: Reports: Bronchitis, Chronic Obstructive Pulmonary Disease (COPD) Endocrine Medical History: Reports: Diabetes Mellitus Type 1, Diabetes Mellitus Type 2 Renal/ Medical History: Reports: End Stage Renal Disease GI Medical History: Reports: Gastroesophageal Reflux Disease, Hiatal Hernia Musculoskeltal Medical History: Reports: Arthritis, Gout Past Surgical History Past Surgical History: Reports: Orthopedic Surgery - BL ankles, Tonsillectomy Social History Smoking Status: Former Smoker Family History Family History: Reviewed & Not Pertinent, Arthritis, CAD, DM, Hyperlipidemia, Hypertension, Malignancy, Thyroid Disfunction Parental Family History Reviewed: Yes Children Family History Reviewed: Yes Sibling(s) Family History Reviewed.: Yes Medication/Allergy Home Medications: Albuterol Sulfate [Ventolin Hfa] 2 puff IH Q4HP PRN #17 gm 08/30/12 Colchicine [Colchicine 0.6 mg Tablet] 0.6 mg PO DAILY 08/30/12 Esomeprazole Magnesium [Nexium] mg PO DAILY 08/30/12 Lisinopril [Prinivil 10 mg Tablet] mg PO DAILY 08/30/12 Hydrocodone/Acetaminophen [Metaline 5-325 mg Tablet] 1 - 2 tab PO ASDIR #15 tablet 03/21/15 Prednisone [Deltasone 10 mg Tablet] 10 mg PO ASDIR PRN #21 tablet 03/21/15 Hydrocodone/Acetaminophen [Metaline 5-325 mg Tablet] 1 tab PO Q6HP PRN #14 tablet 05/13/16 Cyclobenzaprine HCl [Flexeril 10 mg Tablet] 10 mg PO TIDP PRN #15 tab 10/08/16 Naproxen [Naprosyn 375 mg Tablet] 375 mg PO BID #14 tablet 10/08/16 Sulfamethoxazole/Trimethoprim [Bactrim Ds Tablet] 1 each PO BID 14 Days #28 tablet 07/20/19 Doxycycline Hyclate 100 mg PO BID #14 tablet. 08/26/19 Prednisone [Deltasone 10 mg Tablet] 10 mg PO ASDIR PRN #21 tablet 08/26/19 Metformin HCl [Glucophage 500 mg Tablet] 500 mg PO BID #60 tablet 08/24/20 Benzonatate [Tessalon Perles 100 mg Capsule] 100 mg PO Q8HP PRN #40 capsule 09/22/20 Allergies/Adverse Reactions: Penicillins Allergy (Unknown, Verified 09/26/20 10:35) shellfish derived Allergy (Verified 09/26/20 10:35) Review of Systems All systems: reviewed and no additional remarkable complaints except as stated - All systems were reviewed and were negative except as noted in the HPI Physical Exam Vital Signs: Temp Pulse Resp BP Pulse Ox 98.8 F 68 20 153/82 H 94 09/26/20 08:53 09/26/20 08:53 09/26/20 08:53 09/26/20 08:53 09/26/20 08:53 Intake & Output 09/25/20 09/26/20 09/27/20 06:59 06:59 06:59 Weight 153.8 kg General appearance: PRESENT: no acute distress, cooperative, disheveled, morbidly obese Head exam: PRESENT: atraumatic, normocephalic Eye exam: PRESENT: EOMI, PERRLA. ABSENT: conjunctival injection, nystagmus, scleral icterus Ear exam: PRESENT: normal external ear exam Mouth exam: PRESENT: moist, neck supple Teeth exam: PRESENT: poor dentation Throat exam: ABSENT: post pharyngeal erythema Neck exam: PRESENT: full ROM. ABSENT: carotid bruit, JVD, lymphadenopathy, meningismus, tenderness, thyromegaly Respiratory exam: PRESENT: decreased breath sounds - A bit coarse, symmetrical, unlabored. ABSENT: accessory muscle use, chest wall tenderness, crackles, prolonged expiratory phas, rhonchi, tachypnea, wheezes Cardiovascular exam: PRESENT: RRR, +S1, +S2 Pulses: PRESENT: normal carotid pulses Vascular exam: PRESENT: normal capillary refill GI/Abdominal exam: PRESENT: normal bowel sounds, soft, other - Pendulous abdominal pannus. ABSENT: distended, guarding, rebound, tenderness Extremities exam: ABSENT: clubbing, pedal edema Musculoskeletal exam: PRESENT: ambulatory, normal inspection. ABSENT: deformity Neurological exam: PRESENT: alert, awake, oriented to person, oriented to place, oriented to situation, CN II-XII grossly intact. ABSENT: motor sensory deficit Psychiatric exam: PRESENT: appropriate affect, normal mood Skin exam: PRESENT: dry, warm Results Laboratory Results: 09/26/20 11:25 09/26/20 11:25 09/26/20 09/26/20 09/26/20 11:25 11:25 12:30 WBC 3.8 L RBC 4.64 Hgb 11.7 L Hct 36.7 L MCV 79 L MCH 25.2 L MCHC 31.9 L RDW 17.4 H Plt Count 156 Seg Neutrophils % 77.7 Sodium 137.7 Potassium 4.4 Chloride 101 Carbon Dioxide 26 Anion Gap 11 BUN 26 H Creatinine 1.97 H Est GFR ( Amer) 42 L Glucose 120 H Calcium 8.3 L Total Bilirubin 0.3 AST 56 Alkaline Phosphatase 78 Total Protein 7.4 Albumin 4.1 Urine Color YELLOW Urine Appearance SLIGHTLY-CLOUDY Urine pH 5.0 Ur Specific Gardner 1.018 Urine Protein >=500 H Urine Glucose (UA) NEGATIVE Urine Ketones NEGATIVE Urine Blood MODERATE H Urine Nitrite NEGATIVE Ur Leukocyte Esterase NEGATIVE Urine WBC (Auto) 2 Urine RBC (Auto) 10 Impressions: Chest X-Ray 09/26/20 11:11 IMPRESSION: LIMITED STUDY. CARDIOMEGALY. SUSPECT BILATERAL AIRSPACE DISEASE, PNEUMONIA VERSUS DEVELOPING EDEMA. Assessment and Plan - Diagnosis (1) Person under investigation for COVID-19 Is this a current diagnosis for this admission?: Yes (2) Morbid obesity with BMI of 50.0-59.9, adult Is this a current diagnosis for this admission?: Yes (3) COPD (chronic obstructive pulmonary disease) Qualifiers: COPD type: chronic bronchitis Chronic bronchitis type: mixed simple and mucopurulent Qualified Code(s): J41.8 - Mixed simple and mucopurulent chronic bronchitis Is this a current diagnosis for this admission?: Yes (4) Hypertension Qualifiers: Hypertension type: essential hypertension Qualified Code(s): I10 - Essential (primary) hypertension Is this a current diagnosis for this admission?: Yes (5) Stage III chronic kidney disease Qualifiers: Chronic kidney disease stage 3 subtype: stage 3b (GFR 30-44) Qualified Code(s): N18.32 - Chronic kidney disease, stage 3b Is this a current diagnosis for this admission?: Yes (6) Non-insulin dependent diabetes mellitus with obesity Is this a current diagnosis for this admission?: Yes - Plan Summary Summary: By criteria he does not meet for admission for COVID-19. However, he does have a story of exposure to unknown positive, and he has numerous risk factors for poor outcome were he to have the disease. He is not hypoxic at rest. However, this is the third time he has sought attention for this problem in a week, and he is disorder patient that if he were to get sick he would decompensate quickly. I am going to monitor him overnight to see how he might develop. If he looks okay in the morning, he can go home and self isolate. If he begins to decompensate, we can intervene. - Time Time Spent with patient: 35 or more minutes Anticipated Discharge Disposition: Home, Self Care Anticipated Discharge Timeframe: within 72 hours
[2020-09-26] MEDS: INSULIN LISPRO 100 UNIT/ML 3 ML VIAL SUBCUT SCH ×2 (16:39→21:43)
[2020-09-26] MEDS: MELATONIN 5 MG TABLET PO SCH (21:43)
[2020-09-27 05:57] LABS: HEMATOCRIT 35.2 % (37.9-51.0); HEMOGLOBIN 11.7 g/dL (13.5-17.0); MEAN CORPUSCULAR HEMOGLOBIN 25.7 pg (27.0-33.4); MEAN CORPUSCULAR HGB CONC 33.2 g/dL (32.0-36.0); MEAN CORPUSCULAR VOLUME 78 fl (80-97); PLATELET COUNT 157 10^3/uL (150-450); RED BLOOD COUNT 4.55 10^6/uL (4.35-5.55); RED CELL DISTRIBUTION WIDTH 17.4 % (11.5-14.0); WHITE BLOOD COUNT 3.5 10^3/uL (4.0-10.5)
[2020-09-27 06:25] LABS: ANION GAP 16 (5-19); BLOOD UREA NITROGEN 23 mg/dL (7-20); CALCIUM 8.3 mg/dL (8.4-10.2); CARBON DIOXIDE 20 mmol/L (22-30); CHLORIDE 100 mmol/L (98-107); GLUCOSE 117 mg/dL (75-110); POTASSIUM 4.8 mmol/L (3.6-5.0)
[2020-09-27] MEDS ORDERED: ALBUTEROL SULFATE HFA (90 MCG/PUFF) 8 GM MDI (1 MDI/ER DISP) IH PRN (07:40)
[2020-09-27] MEDS: INSULIN LISPRO 100 UNIT/ML 3 ML VIAL SUBCUT SCH ×4 (08:41→21:35)
[2020-09-27] MEDS: LOSARTAN POTASSIUM 50 MG TABLET PO SCH (09:42)
[2020-09-27] MEDS: HYDROCHLOROTHIAZIDE 25 MG TABLET PO SCH (09:42)
[2020-09-27] MEDS: ATENOLOL 50 MG TABLET PO SCH (09:43)
[2020-09-27] MEDS ORDERED: (PENDING PHARMACY ID) (Losartan/Hydrochlorothiazide [Losartan-Hctz 100-25 Mg Tab] 1 EACH) PO SCH (10:00)
[2020-09-27] MEDS: FLUTICASONE/VILANTEROL 200-25 MCG/DOSE IH SCH (10:29)
[2020-09-27] MEDS ORDERED: DEXAMETHASONE SOD PHOS INJ 10 MG/1 ML VIAL IV SCH (11:00)
[2020-09-27] MEDS ORDERED: REMDESIVIR 200 MG in NORMAL SALINE 250 ML IV ONE (11:30)
--- NOTE | 2020-09-27 13:57 | PDOC PROGRESS REPORT ---
Subjective Date:: 09/27/20 Subjective:: No adverse events overnight. No new complaints. No fevers overnight. He gets short of breath when he gets up to go to the bathroom. He does appear to be just a little short of breath at rest but he says he feels okay. He told me that his ex- called him and said that the Covid test they received on Friday came back positive. Apparently they got it at [facility]. Reason For Visit: DYSPNEA Physical Exam Vital Signs: Temp Pulse Resp BP Pulse Ox 98.2 F 70 19 134/70 H 90 L 09/27/20 11:30 09/27/20 11:30 09/27/20 11:30 09/27/20 11:30 09/27/20 11:30 Intake & Output 09/26/20 09/27/20 09/28/20 06:59 06:59 06:59 Weight 153.8 kg General appearance: PRESENT: no acute distress, cooperative, disheveled, morbidly obese Respiratory exam: PRESENT: Appears a little short of breath at rest, decreased breath sounds - A bit coarse, symmetrical, unlabored. ABSENT: accessory muscle use, chest wall tenderness, crackles, prolonged expiratory phase, rhonchi, tachypnea, wheezes Cardiovascular exam: PRESENT: RRR, +S1, +S2 Pulses: PRESENT: normal carotid pulses Vascular exam: PRESENT: normal capillary refill GI/Abdominal exam: PRESENT: normal bowel sounds, soft, other - Pendulous abdominal pannus. ABSENT: distended, guarding, rebound, tenderness Extremities exam: ABSENT: clubbing, pedal edema Musculoskeletal exam: PRESENT: ambulatory, normal inspection. ABSENT: deformity Neurological exam: PRESENT: alert, awake, oriented to person, oriented to place, oriented to situation Psychiatric exam: PRESENT: appropriate affect, normal mood Skin exam: PRESENT: dry, warm Results Laboratory Results: 09/27/20 05:03 09/27/20 05:03 09/27/20 09/27/20 05:03 05:03 WBC 3.5 L RBC 4.55 Hgb 11.7 L Hct 35.2 L MCV 78 L MCH 25.7 L MCHC 33.2 RDW 17.4 H Plt Count 157 Sodium 135.7 L Potassium 4.8 Chloride 100 Carbon Dioxide 20 L Anion Gap 16 BUN 23 H Creatinine 1.73 H Est GFR ( Amer) 49 L Glucose 117 H Calcium 8.3 L Impressions: Chest X-Ray 09/26/20 11:11 IMPRESSION: LIMITED STUDY. CARDIOMEGALY. SUSPECT BILATERAL AIRSPACE DISEASE, PNEUMONIA VERSUS DEVELOPING EDEMA. Assessment and Plan - Diagnosis (1) COVID-19 Is this a current diagnosis for this admission?: Yes (2) Morbid obesity with BMI of 50.0-59.9, adult Is this a current diagnosis for this admission?: Yes (3) COPD (chronic obstructive pulmonary disease) Qualifiers: COPD type: chronic bronchitis Chronic bronchitis type: mixed simple and mu copurulent Qualified Code(s): J41.8 - Mixed simple and mucopurulent chronic bronchitis Is this a current diagnosis for this admission?: Yes (4) Hypertension Qualifiers: Hypertension type: essential hypertension Qualified Code(s): I10 - Essential (primary) hypertension Is this a current diagnosis for this admission?: Yes (5) Stage III chronic kidney disease Qualifiers: Chronic kidney disease stage 3 subtype: stage 3b (GFR 30-44) Qualified Code(s): N18.32 - Chronic kidney disease, stage 3b Is this a current diagnosis for this admission?: Yes (6) Non-insulin dependent diabetes mellitus with obesity Is this a current diagnosis for this admission?: Yes - Plan Summary Summary: His oxygen saturations on room air this morning were fluctuating between 85% and 93%. He also looks a little short of breath at rest. According to the current guidelines, which fluctuate frequently due to our limited knowledge of this virus and its disease, this patient would be considered suspicious for having severe disease. When you look at him, he does not look that bad. However, his oxygen is little on the low side, he does appear a little short of breath at rest, and he has numerous comorbidities that would put him at risk for a poor outcome if his disease were to progress. Therefore, we will initiate steroids and antiviral therapy and will try to keep his SPO2 greater than 94%. We are checking his D-dimer to see if he needs to be anticoagulated. - Time Time Spent with patient: 25-34 minutes Anticipated Discharge Disposition: Undetermined Anticipated Discharge Timeframe: Undetermined - Inpatient Certification Based on my medical assessment, after consideration of the patient's comorbidities, presenting symptoms, or acuity I expect that the services needed warrant INPATIENT care.: Yes I certify that my determination is in accordance with my understanding of Medicare's requirements for reasonable and necessary INPATIENT services [42 CFR 412.3e].: Yes Medical Necessity: Significant Comorbidiites Make Outpatient Treatment Too Risky, Need Close Monitoring Due to Risk of Patient Decompensation, Need For Continuous Telemetry Monitoring, Risk of Complication if Not Cared For in Hospital
[2020-09-27] MEDS: DEXAMETHASONE SOD PHOSPHATE INJ 4 MG/1 ML VIAL IV SCH (14:02)
[2020-09-27] MEDS: PANTOPRAZOLE SODIUM 40 MG TABLET.DR PO SCH (15:35)
[2020-09-27] MEDS: ENOXAPARIN SODIUM INJ 40 MG/0.4 ML DISP.SYRIN SUBCUT SCH (15:35)
[2020-09-27 17:23] LABS: APPEARANCE,URINE CLEAR; BILIRUBIN,URINE NEGATIVE (NEGATIVE); COLOR,URINE YELLOW; GLUCOSE, URINE NEGATIVE (NEGATIVE); KETONES,URINE NEGATIVE (NEGATIVE); LEUKOCYTE ESTERASE,URINE NEGATIVE (NEGATIVE); NITRITE,URINE NEGATIVE (NEGATIVE); PROTEIN,URINE >=500 mg/dL (NEGATIVE); URINE SPECIFIC GRAVITY 1.018
[2020-09-27] MEDS: FEBUXOSTAT 80 MG TABLET PO SCH (17:53)
[2020-09-27] MEDS ORDERED: (PENDING PHARMACY ID) (Bimatoprost [Lumigan 0.01% Oph Soln 2.5 Ml/Bottle] 1 DROP) OU SCH (22:00)
[2020-09-27] MEDS: LATANOPROST 0.005% OPH SOLN 2.5 ML OU SCH (22:05)
[2020-09-27] MEDS: MELATONIN 5 MG TABLET PO SCH (22:06)
[2020-09-27] MEDS: SIMVASTATIN 10 MG TABLET PO SCH (22:06)
[2020-09-28] MEDS: INSULIN LISPRO 100 UNIT/ML 3 ML VIAL SUBCUT SCH ×4 (09:34→22:57)
[2020-09-28] MEDS: FLUTICASONE/VILANTEROL 200-25 MCG/DOSE IH SCH (09:55)
[2020-09-28] MEDS: DEXAMETHASONE SOD PHOSPHATE INJ 4 MG/1 ML VIAL IV SCH (09:56)
[2020-09-28] MEDS: ATENOLOL 50 MG TABLET PO SCH (09:56)
[2020-09-28] MEDS: REMDESIVIR 100 MG in NORMAL SALINE 250 ML IV SCH (09:56)
[2020-09-28] MEDS: LOSARTAN POTASSIUM 50 MG TABLET PO SCH (09:56)
[2020-09-28] MEDS: ENOXAPARIN SODIUM INJ 40 MG/0.4 ML DISP.SYRIN SUBCUT SCH (09:57)
[2020-09-28] MEDS: HYDROCHLOROTHIAZIDE 25 MG TABLET PO SCH (09:57)
--- NOTE | 2020-09-28 15:34 | PDOC PROGRESS REPORT ---
Subjective Date:: 09/28/20 Subjective:: No adverse events overnight. No fevers. Oxygenation has been stable on 2 L per nasal cannula. He still feels little short of breath at rest but his vital signs are good and stable. Eating and drinking without difficulty. Reason For Visit: COVID-19 Physical Exam Vital Signs: Temp Pulse Resp BP Pulse Ox 97.8 F 58 L 22 H 146/77 H 92 09/28/20 12:27 09/28/20 14:00 09/28/20 03:17 09/28/20 12:27 09/28/20 12:27 Intake & Output 09/27/20 09/28/20 09/29/20 06:59 06:59 06:59 Intake Total 250 250 Balance 250 250 Weight 153.8 kg 154.2 kg General appearance: PRESENT: no acute distress, cooperative, disheveled, morbidly obese Respiratory exam: PRESENT: Appears a little short of breath at rest, decreased breath sounds - A bit coarse, symmetrical, unlabored. ABSENT: accessory muscle use, chest wall tenderness, crackles, prolonged expiratory phase, rhonchi, tachypnea, wheezes Cardiovascular exam: PRESENT: RRR, +S1, +S2 Pulses: PRESENT: normal carotid pulses Vascular exam: PRESENT: normal capillary refill GI/Abdominal exam: PRESENT: normal bowel sounds, soft, other - Pendulous abdominal pannus. ABSENT: distended, guarding, rebound, tenderness Extremities exam: ABSENT: clubbing, pedal edema Musculoskeletal exam: PRESENT: ambulatory, normal inspection. ABSENT: deformity Neurological exam: PRESENT: alert, awake, oriented to person, oriented to place, oriented to situation Psychiatric exam: PRESENT: appropriate affect, normal mood Skin exam: PRESENT: dry, warm Results Laboratory Results: 09/27/20 05:03 09/27/20 05:03 09/27/20 16:40 Urine Color YELLOW Urine Appearance CLEAR Urine pH 5.0 Ur Specific Crary 1.018 Urine Protein >=500 H Urine Glucose (UA) NEGATIVE Urine Ketones NEGATIVE Urine Blood MODERATE H Urine Nitrite NEGATIVE Ur Leukocyte Esterase NEGATIVE Urine WBC (Auto) 1 Urine RBC (Auto) 1 Impressions: Chest X-Ray 09/26/20 11:11 IMPRESSION: LIMITED STUDY. CARDIOMEGALY. SUSPECT BILATERAL AIRSPACE DISEASE, PNEUMONIA VERSUS DEVELOPING EDEMA. Assessment and Plan - Diagnosis (1) COVID-19 Is this a current diagnosis for this admission?: Yes (2) Morbid obesity with BMI of 50.0-59.9, adult Is this a current diagnosis for this admission?: Yes (3) COPD (chronic obstructive pulmonary disease) Qualifiers: COPD type: chronic bronchitis Chronic bronchitis type: mixed simple and mucopurulent Qualified Code(s): J41.8 - Mixed simple and mucopurulent chronic bronchitis Is this a current diagnosis for this admission?: Yes (4) Hypertension Qualifiers: Hypertension type: essential hypertension Qualified Code(s): I10 - Essential (primary) hypertension Is this a current diagnosis for this admission?: Yes (5) Stage III chronic kidney disease Qualifiers: Chronic kidney disease stage 3 subtype: stage 3b (GFR 30-44) Qualified Code(s): N18.32 - Chronic kidney disease, stage 3b Is this a current diagnosis for this admission?: Yes (6) Non-insulin dependent diabetes mellitus with obesity Is this a current diagnosis for this admission?: Yes - Plan Summary Summary: He is on remdesivir and Decadron. He is receiving DVT prophylaxis. He has been stable on 2 L per nasal cannula. His comorbidities are being managed with his home medications, with the exception of his Metformin which is being discontinued in favor of sliding scale insulin due to his elevated creatinine, which is at his baseline. He has now been sick for a little over a week, I think he is at 9 days from onset of symptoms. - Time Time Spent with patient: 15-24 minutes Anticipated Discharge Disposition: Home, Self Care Anticipated Discharge Timeframe: Undetermined
[2020-09-28] MEDS: FEBUXOSTAT 80 MG TABLET PO SCH (17:29)
[2020-09-28] MEDS: PANTOPRAZOLE SODIUM 40 MG TABLET.DR PO SCH (17:29)
[2020-09-28] MEDS: MELATONIN 5 MG TABLET PO SCH (23:00)
[2020-09-28] MEDS: SIMVASTATIN 10 MG TABLET PO SCH (23:00)
[2020-09-28] MEDS: LATANOPROST 0.005% OPH SOLN 2.5 ML OU SCH (23:01)
--- NOTE | 2020-09-29 00:34 | EKG REPORT ---
SEVERITY:- OTHERWISE NORMAL ECG - SINUS BRADYCARDIA : Confirmed by: Jennifer Miller 29-Sep-2020 00:33:29
[2020-09-29 10:35] LABS: ANION GAP 14 (5-19); BLOOD UREA NITROGEN 34 mg/dL (7-20); CALCIUM 8.6 mg/dL (8.4-10.2); CARBON DIOXIDE 25 mmol/L (22-30); CHLORIDE 99 mmol/L (98-107); GLUCOSE 137 mg/dL (75-110); POTASSIUM 4.7 mmol/L (3.6-5.0)
[2020-09-29] MEDS: LOSARTAN POTASSIUM 50 MG TABLET PO SCH (10:47)
[2020-09-29] MEDS: ENOXAPARIN SODIUM INJ 40 MG/0.4 ML DISP.SYRIN SUBCUT SCH (10:47)
[2020-09-29] MEDS: HYDROCHLOROTHIAZIDE 25 MG TABLET PO SCH (10:47)
[2020-09-29] MEDS: DEXAMETHASONE SOD PHOSPHATE INJ 4 MG/1 ML VIAL IV SCH (10:47)
[2020-09-29] MEDS: FLUTICASONE/VILANTEROL 200-25 MCG/DOSE IH SCH (10:48)
[2020-09-29] MEDS: REMDESIVIR 100 MG in NORMAL SALINE 250 ML IV SCH (10:48)
[2020-09-29] MEDS: INSULIN LISPRO 100 UNIT/ML 3 ML VIAL SUBCUT SCH ×4 (10:49→21:31)
--- NOTE | 2020-09-29 14:25 | PDOC PROGRESS REPORT ---
Subjective Date:: 09/29/20 Subjective:: No adverse events overnight. No fevers. Oxygenation has been stable on 2 L per nasal cannula. He still feels little short of breath at rest but his vital signs are good and stable. Eating and drinking without difficulty. He said he still having some trouble sleeping. He said he feels something weird in his chest whenever he tries to fall asleep. I reviewed the telemetry and could not find anything that looked abnormal. His heart rate has been a little bit low and so we have been holding his atenolol. Reason For Visit: COVID-19 Physical Exam Vital Signs: Temp Pulse Resp BP Pulse Ox 98.6 F 52 L 18 142/71 H 93 09/29/20 11:24 09/29/20 11:24 09/29/20 11:24 09/29/20 11:24 09/29/20 11:24 Intake & Output 09/28/20 09/29/20 09/30/20 06:59 06:59 06:59 Intake Total 250 1084 250 Balance 250 1084 250 Weight 154.2 kg 155 kg General appearance: PRESENT: no acute distress, cooperative, disheveled, morbidly obese Respiratory exam: PRESENT: Appears a little short of breath at rest, decreased b reath sounds - A bit coarse, symmetrical, unlabored. ABSENT: accessory muscle use, chest wall tenderness, crackles, prolonged expiratory phase, rhonchi, tachypnea, wheezes Cardiovascular exam: PRESENT: RRR, +S1, +S2 Pulses: PRESENT: normal carotid pulses Vascular exam: PRESENT: normal capillary refill GI/Abdominal exam: PRESENT: normal bowel sounds, soft, other - Pendulous abdominal pannus. ABSENT: distended, guarding, rebound, tenderness Extremities exam: ABSENT: clubbing, pedal edema Musculoskeletal exam: PRESENT: ambulatory, normal inspection. ABSENT: deformity Neurological exam: PRESENT: alert, awake, oriented to person, oriented to place, oriented to situation Psychiatric exam: PRESENT: appropriate affect, normal mood Skin exam: PRESENT: dry, warm Results Laboratory Results: 09/27/20 05:03 09/29/20 09:17 09/29/20 09:17 Sodium 137.7 Potassium 4.7 Chloride 99 Carbon Dioxide 25 Anion Gap 14 BUN 34 H Creatinine 1.81 H Est GFR ( Amer) 47 L Glucose 137 H Calcium 8.6 Impressions: Chest X-Ray 09/26/20 11:11 IMPRESSION: LIMITED STUDY. CARDIOMEGALY. SUSPECT BILATERAL AIRSPACE DISEASE, PNEUMONIA VERSUS DEVELOPING EDEMA. Assessment and Plan - Diagnosis (1) COVID-19 Is this a current diagnosis for this admission?: Yes (2) Morbid obesity with BMI of 50.0-59.9, adult Is this a current diagnosis for this admission?: Yes (3) COPD (chronic obstructive pulmonary disease) Qualifiers: COPD type: chronic bronchitis Chronic bronchitis type: mixed simple and mucopurulent Qualified Code(s): J41.8 - Mixed simple and mucopurulent chronic bronchitis Is this a current diagnosis for this admission?: Yes (4) Hypertension Qualifiers: Hypertension type: essential hypertension Qualified Code(s): I10 - Esse ntial (primary) hypertension Is this a current diagnosis for this admission?: Yes (5) Stage III chronic kidney disease Qualifiers: Chronic kidney disease stage 3 subtype: stage 3b (GFR 30-44) Qualified Code(s): N18.32 - Chronic kidney disease, stage 3b Is this a current diagnosis for this admission?: Yes (6) Non-insulin dependent diabetes mellitus with obesity Is this a current diagnosis for this admission?: Yes - Plan Summary Summary: He is on remdesivir and Decadron. He is receiving DVT prophylaxis. He has been stable on 2 L per nasal cannula. His comorbidities are being managed with his home medications, with the exception of his Metformin which is being discontinued in favor of sliding scale insulin due to his elevated creatinine, which is at his baseline. Atenolol on hold for low heart rate. No evidence of rhythm abnormalities except for a slow heart rate whenever he was try to go to sleep last night. - Time Time Spent with patient: 15-24 minutes Anticipated Discharge Disposition: Home, Self Care Anticipated Discharge Timeframe: within 72 hours
[2020-09-29] MEDS: PANTOPRAZOLE SODIUM 40 MG TABLET.DR PO SCH (17:36)
[2020-09-29] MEDS: FEBUXOSTAT 80 MG TABLET PO SCH (17:36)
[2020-09-29 17:46] LABS: APPEARANCE,URINE CLEAR; BILIRUBIN,URINE NEGATIVE (NEGATIVE); COLOR,URINE YELLOW; GLUCOSE, URINE NEGATIVE (NEGATIVE); KETONES,URINE NEGATIVE (NEGATIVE); LEUKOCYTE ESTERASE,URINE NEGATIVE (NEGATIVE); NITRITE,URINE NEGATIVE (NEGATIVE); PROTEIN,URINE 100 mg/dL (NEGATIVE); UROBILINOGEN,URINE NEGATIVE mg/dL (<2.0)
[2020-09-29] MEDS: MELATONIN 5 MG TABLET PO SCH (21:27)
[2020-09-29] MEDS: LATANOPROST 0.005% OPH SOLN 2.5 ML OU SCH (21:27)
[2020-09-29] MEDS: SIMVASTATIN 10 MG TABLET PO SCH (21:27)
[2020-09-30 05:07] LABS: ANION GAP 13 (5-19); BLOOD UREA NITROGEN 37 mg/dL (7-20); CALCIUM 8.9 mg/dL (8.4-10.2); CARBON DIOXIDE 23 mmol/L (22-30); CHLORIDE 103 mmol/L (98-107); GLUCOSE 114 mg/dL (75-110); POTASSIUM 4.8 mmol/L (3.6-5.0)
[2020-09-30] MEDS: INSULIN LISPRO 100 UNIT/ML 3 ML VIAL SUBCUT SCH ×4 (08:14→21:38)
[2020-09-30] MEDS: FLUTICASONE/VILANTEROL 200-25 MCG/DOSE IH SCH (10:40)
[2020-09-30] MEDS: HYDROCHLOROTHIAZIDE 25 MG TABLET PO SCH (10:41)
[2020-09-30] MEDS: LOSARTAN POTASSIUM 50 MG TABLET PO SCH (10:41)
[2020-09-30] MEDS: DEXAMETHASONE SOD PHOSPHATE INJ 4 MG/1 ML VIAL IV SCH (10:43)
[2020-09-30] MEDS: ENOXAPARIN SODIUM INJ 40 MG/0.4 ML DISP.SYRIN SUBCUT SCH (10:46)
[2020-09-30] MEDS: REMDESIVIR 100 MG in NORMAL SALINE 250 ML IV SCH (10:47)
--- NOTE | 2020-09-30 16:14 | PDOC PROGRESS REPORT ---
Subjective Date:: 09/30/20 Subjective:: No adverse events overnight. No new complaints. Vital signs been stable. Hear t rate has improved. He said he still had trouble sleeping last night. I had ordered some Ambien but he did not request that in the nurses. I told him to make sure he requested tonight if he still having trouble sleeping. Reason For Visit: COVID-19 Physical Exam Vital Signs: Temp Pulse Resp BP Pulse Ox 97.5 F 59 L 16 143/84 H 96 09/30/20 12:01 09/30/20 14:00 09/30/20 12:01 09/30/20 12:01 09/30/20 12:01 Intake & Output 09/29/20 09/30/20 10/01/20 06:59 06:59 06:59 Intake Total 1084 250 250 Balance 1084 250 250 Weight 155 kg General appearance: PRESENT: no acute distress, cooperative, disheveled, morbidly obese Respiratory exam: PRESENT: decreased breath sounds - A bit coarse, symmetrical, unlabored. ABSENT: accessory muscle use, chest wall tenderness, crackles, prolonged expiratory phase, rhonchi, tachypnea, wheezes Cardiovascular exam: PRESENT: RRR, +S1, +S2 Pulses: PRESENT: normal carotid pulses Vascular exam: PRESENT: normal capillary refill GI/Abdominal exam: PRESENT: normal bowel sounds, soft, other - Pendulous abdominal pannus. ABSENT: distended, guarding, rebound, tenderness Extremities exam: ABSENT: clubbing, pedal edema Musculoskeletal exam: PRESENT: ambulatory, normal inspection. ABSENT: deformity Neurological exam: PRESENT: alert, awake, oriented to person, oriented to place, oriented to situation Psychiatric exam: PRESENT: appropriate affect, normal mood Skin exam: PRESENT: dry, warm Results Laboratory Results: 09/27/20 05:03 09/30/20 04:20 09/29/20 09/30/20 17:15 04:20 Sodium 138.9 Potassium 4.8 Chloride 103 Carbon Dioxide 23 Anion Gap 13 BUN 37 H Creatinine 1.74 H Est GFR ( Amer) 49 L Glucose 114 H Calcium 8.9 Urine Color YELLOW Urine Appearance CLEAR Urine pH 5.0 Ur Specific [place] 1.010 Urine Protein 100 H Urine Glucose (UA) NEGATIVE Urine Ketones NEGATIVE Urine Blood SMALL H Urine Nitrite NEGATIVE Ur Leukocyte Esterase NEGATIVE Urine WBC (Auto) 0 Urine RBC (Auto) 1 Impressions: Chest X-Ray 09/26/20 11:11 IMPRESSION: LIMITED STUDY. CARDIOMEGALY. SUSPECT BILATERAL AIRSPACE DISEASE, PNEUMONIA VERSUS DEVELOPING EDEMA. Assessment and Plan - Diagnosis (1) COVID-19 Is this a current diagnosis for this admission?: Yes (2) Morbid obesity with BMI of 50.0-59.9, adult Is this a current diagnosis for this admission?: Yes (3) COPD (chronic obstructive pulmonary disease) Qualifiers: COPD type: chronic bronchitis Chronic bronchitis type: mixed simple and mucopurulent Qualified Code(s): J41.8 - Mixed simple and mucopurulent chronic bronchitis Is this a current diagnosis for this admission?: Yes (4) Hypertension Qualifiers: Hypertension type: essential hypertension Qualified Code(s): I10 - Essential (primary) hypertension Is this a current diagnosis for this admission?: Yes (5) Stage III chronic kidney disease Qualifiers: Chronic kidney disease stage 3 subtype: stage 3b (GFR 30-44) Qualified Code(s): N18.32 - Chronic kidney disease, stage 3b Is this a current diagnosis for this admission?: Yes (6) Non-insulin dependent diabetes mellitus with obesity Is this a current diagnosis for this admission?: Yes - Plan Summary Summary: He is on remdesivir and Decadron. He is receiving DVT prophylaxis. He has been stable on 2 L per nasal cannula. He actually does okay when he is on room air, I think he just likes having the oxygen on because it makes him feel more secure. His heart rate is come up and it showed no rhythm abnormalities. He has Ambien at bedtime as needed for sleep. He has had 4 out of 5 doses of remdesivir. If he looks okay tomorrow morning after his fifth dose he can go h ome. - Time Time Spent with patient: 15-24 minutes Anticipated Discharge Disposition: Home, Self Care Anticipated Discharge Timeframe: within 24 hours
[2020-09-30] MEDS: PANTOPRAZOLE SODIUM 40 MG TABLET.DR PO SCH (16:58)
[2020-09-30] MEDS: FEBUXOSTAT 80 MG TABLET PO SCH (18:30)
[2020-09-30] MEDS: MELATONIN 5 MG TABLET PO SCH ×2 (21:38→21:54)
[2020-09-30] MEDS: SIMVASTATIN 10 MG TABLET PO SCH (21:38)
[2020-09-30] MEDS: LATANOPROST 0.005% OPH SOLN 2.5 ML OU SCH (21:43)
[2020-09-30] MEDS: ZOLPIDEM TARTRATE 5 MG TABLET PO PRN (21:54)
[2020-10-01 06:38] LABS: ANION GAP 10 (5-19); BLOOD UREA NITROGEN 34 mg/dL (7-20); CALCIUM 8.7 mg/dL (8.4-10.2); CARBON DIOXIDE 27 mmol/L (22-30); CHLORIDE 103 mmol/L (98-107); GLUCOSE 105 mg/dL (75-110); POTASSIUM 4.8 mmol/L (3.6-5.0)
[2020-10-01] MEDS: INSULIN LISPRO 100 UNIT/ML 3 ML VIAL SUBCUT SCH ×4 (10:11→22:38)
[2020-10-01] MEDS: HYDROCHLOROTHIAZIDE 25 MG TABLET PO SCH (10:26)
[2020-10-01] MEDS: LOSARTAN POTASSIUM 50 MG TABLET PO SCH (10:27)
[2020-10-01] MEDS: REMDESIVIR 100 MG in NORMAL SALINE 250 ML IV SCH (10:27)
[2020-10-01] MEDS: DEXAMETHASONE SOD PHOSPHATE INJ 4 MG/1 ML VIAL IV SCH (10:28)
[2020-10-01] MEDS: ENOXAPARIN SODIUM INJ 40 MG/0.4 ML DISP.SYRIN SUBCUT SCH (10:33)
[2020-10-01] MEDS: FLUTICASONE/VILANTEROL 200-25 MCG/DOSE IH SCH (10:48)
--- NOTE | 2020-10-01 16:36 | PDOC PROGRESS REPORT ---
Subjective Date:: 10/01/20 Subjective:: No adverse events overnight. No new complaints. He said he has been wearing th e oxygen and the CPAP because he is more comfortable while he wears it. I was hoping to be able to let him go home today after he finishes his last dose of remdesivir but his oxygen saturations were in the upper 80s on 2 L per nasal cannula. Reason For Visit: COVID-19 Physical Exam Vital Signs: Temp Pulse Resp BP Pulse Ox 97.9 F 66 16 135/63 H 89 L 10/01/20 11:07 10/01/20 14:00 10/01/20 11:07 10/01/20 11:07 10/01/20 11:07 Intake & Output 09/30/20 10/01/20 10/02/20 06:59 06:59 06:59 Intake Total 250 990 250 Balance 250 990 250 Weight 163.3 kg General appearance: PRESENT: no acute distress, cooperative, disheveled, morbidly obese Respiratory exam: PRESENT: decreased breath sounds - A bit coarse, symmetrical, unlabored. ABSENT: accessory muscle use, chest wall tenderness, crackles, prolonged expiratory phase, rhonchi, tachypnea, wheezes Cardiovascular exam: PRESENT: RRR, +S1, +S2 Pulses: PRESENT: normal carotid pulses Vascular exam: PRESENT: normal capillary refill GI/Abdominal exam: PRESENT: normal bowel sounds, soft, other - Pendulous abdominal pannus. ABSENT: distended, guarding, rebound, tenderness Extremities exam: ABSENT: clubbing, pedal edema Musculoskeletal exam: PRESENT: ambulatory, normal inspection. ABSENT: deformity Neurological exam: PRESENT: alert, awake, oriented to person, oriented to place, oriented to situation Psychiatric exam: PRESENT: appropriate affect, normal mood Skin exam: PRESENT: dry, warm Results Laboratory Results: 09/27/20 05:03 10/01/20 05:35 10/01/20 05:35 Sodium 139.8 Potassium 4.8 Chloride 103 Carbon Dioxide 27 Anion Gap 10 BUN 34 H Creatinine 1.64 H Est GFR ( Amer) 52 L Glucose 105 Calcium 8.7 Impressions: Chest X-Ray 09/26/20 11:11 IMPRESSION: LIMITED STUDY. CARDIOMEGALY. SUSPECT BILATERAL AIRSPACE DISEASE, PNEUMONIA VERSUS DEVELOPING EDEMA. Assessment and Plan - Diagnosis (1) COVID-19 Is this a current diagnosis for this admission?: Yes (2) Morbid obesity with BMI of 50.0-59.9, adult Is this a current diagnosis for this admission?: Yes (3) COPD (chronic obstructive pulmonary disease) Qualifiers: COPD type: chronic bronchitis Chronic bronchitis type: mixed simple and mucopurulent Qualified Code(s): J41.8 - Mixed simple and mucopurulent chronic bronchitis Is this a current diagnosis for this admission?: Yes (4) Hypertension Qualifiers: Hypertension type: essential hypertension Qualified Code(s): I10 - Essential (primary) hypertension Is this a current diagnosis for this admission?: Yes (5) Stage III chronic kidney disease Qualifiers: Chronic kidney disease stage 3 subtype: stage 3b (GFR 30-44) Qualified Code(s): N18.32 - Chronic kidney disease, stage 3b Is this a current diagnosis for this admission?: Yes (6) Non-insulin dependent diabetes mellitus with obesity Is this a current diagnosis for this admission?: Yes - Plan Summary Summary: He is on remdesivir and Decadron. He is receiving DVT prophylaxis. He was doing fairly well on room air with saturations in the low 90s, but today he is requiring 2 L to keep his saturations between 88 to 92%. Were going to monitor him for another day. Today is his last dose of remdesivir. We will watch closely for signs of respiratory decompensation. - Time Time Spent with patient: 15-24 minutes Anticipated Discharge Disposition: Home, Self Care Anticipated Discharge Timeframe: within 72 hours
[2020-10-01] MEDS: PANTOPRAZOLE SODIUM 40 MG TABLET.DR PO SCH (17:09)
[2020-10-01] MEDS: FEBUXOSTAT 80 MG TABLET PO SCH (17:11)
[2020-10-01] MEDS: ZOLPIDEM TARTRATE 5 MG TABLET PO PRN (21:08)
[2020-10-01] MEDS: MELATONIN 5 MG TABLET PO SCH (21:09)
[2020-10-01] MEDS: LATANOPROST 0.005% OPH SOLN 2.5 ML OU SCH (21:12)
[2020-10-01] MEDS: SIMVASTATIN 10 MG TABLET PO SCH (21:42)
[2020-10-02] MEDS: INSULIN LISPRO 100 UNIT/ML 3 ML VIAL SUBCUT SCH ×4 (07:47→21:49)
[2020-10-02 08:01] LABS: ANION GAP 11 (5-19); BLOOD UREA NITROGEN 33 mg/dL (7-20); CARBON DIOXIDE 25 mmol/L (22-30); CHLORIDE 103 mmol/L (98-107); GLUCOSE 102 mg/dL (75-110); POTASSIUM 4.8 mmol/L (3.6-5.0)
[2020-10-02] MEDS: LOSARTAN POTASSIUM 50 MG TABLET PO SCH (09:24)
[2020-10-02] MEDS: DEXAMETHASONE SOD PHOSPHATE INJ 4 MG/1 ML VIAL IV SCH (09:24)
[2020-10-02] MEDS: HYDROCHLOROTHIAZIDE 25 MG TABLET PO SCH (09:24)
[2020-10-02] MEDS: ENOXAPARIN SODIUM INJ 40 MG/0.4 ML DISP.SYRIN SUBCUT SCH (09:31)
[2020-10-02] MEDS: FLUTICASONE/VILANTEROL 200-25 MCG/DOSE IH SCH (09:32)
--- NOTE | 2020-10-02 16:26 | PDOC PROGRESS REPORT ---
Subjective Date:: 10/02/20 Subjective:: No adverse events overnight. He did require more oxygen overnight. He was on 5 L overnight. We able to turn him down to 3 this morning, but he still at only 90% and he is bouncing between 88 and 90%. When he gets up to go to the bathroom his SPO2 drops and he gets tachycardic. Reason For Visit: COVID-19 Physical Exam Vital Signs: Temp Pulse Resp BP Pulse Ox 98.1 F 62 20 117/61 90 L 10/02/20 15:00 10/02/20 15:00 10/02/20 15:00 10/02/20 15:00 10/02/20 15:00 Intake & Output 10/01/20 10/02/20 10/03/20 06:59 06:59 06:59 Intake Total 990 1042 520 Output Total 100 Balance 990 942 520 Weight 163.3 kg 163.8 kg General appearance: PRESENT: no acute distress, cooperative, disheveled, morbidly obese Respiratory exam: PRESENT: decreased breath sounds - A bit coarse, symmetrical, unlabored. ABSENT: accessory muscle use, chest wall tenderness, crackles, prolonged expiratory phase, rhonchi, tachypnea, wheezes Cardiovascular exam: PRESENT: RRR, +S1, +S2 Pulses: PRESENT: normal carotid pulses Vascular exam: PRESENT: normal capillary refill GI/Abdominal exam: PRESENT: normal bowel sounds, soft, other - Pendulous abdominal pannus. ABSENT: distended, guarding, rebound, tenderness Extremities exam: ABSENT: clubbing, pedal edema Musculoskeletal exam: PRESENT: ambulatory, normal inspection. ABSENT: deformity Neurological exam: PRESENT: alert, awake, oriented to person, oriented to place, oriented to situation Psychiatric exam: PRESENT: appropriate affect, normal mood Skin exam: PRESENT: dry, warm Results Laboratory Results: 09/27/20 05:03 10/02/20 06:56 10/02/20 06:56 Sodium 138.6 Potassium 4.8 Chloride 103 Carbon Dioxide 25 Anion Gap 11 BUN 33 H Creatinine 1.77 H Est GFR ( Amer) 48 L Glucose 102 Calcium 9.0 Impressions: Chest X-Ray 09/26/20 11:11 IMPRESSION: LIMITED STUDY. CARDIOMEGALY. SUSPECT BILATERAL AIRSPACE DISEASE, PNEUMONIA VERSUS DEVELOPING EDEMA. Assessment and Plan - Diagnosis (1) COVID-19 Is this a current diagnosis for this admission?: Yes (2) Morbid obesity with BMI of 50.0-59.9, adult Is this a current diagnosis for this admission?: Yes (3) COPD (chronic obstructive pulmonary disease) Qualifiers: COPD type: chronic bronchitis Chronic bronchitis type: mixed simple and mucopurulent Qualified Code(s): J41.8 - Mixed simple and mucopurulent chronic bronchitis Is this a current diagnosis for this admission?: Yes (4) Hypertension Qualifiers: Hypertension type: essential hypertension Qualified Code(s): I10 - Essential (primary) hypertension Is this a current diagnosis for this admission?: Yes (5) Stage III chronic kidney disease Qualifiers: Chronic kidney disease stage 3 subtype: stage 3b (GFR 30-44) Qualified Code(s): N18.32 - Chronic kidney disease, stage 3b Is this a current diagnosis for this admission?: Yes (6) Non-insulin dependent diabetes mellitus with obesity Is this a current diagnosis for this admission?: Yes - Plan Summary Summary: He has completed remdesivir. He continues on Decadron. His oxygen requirement got a little worse overnight. We are going to monitor him closely and see if we can wean his oxygen. He has risk factors for developing severe disease and while watching him closely. - Time Time Spent with patient: 15-24 minutes Anticipated Discharge Disposition: Home, Self Care Anticipated Discharge Timeframe: Undetermin
[2020-10-02] MEDS: PANTOPRAZOLE SODIUM 40 MG TABLET.DR PO SCH (17:17)
[2020-10-02] MEDS: FEBUXOSTAT 80 MG TABLET PO SCH (17:18)
[2020-10-02] MEDS: MELATONIN 5 MG TABLET PO SCH (21:45)
[2020-10-02] MEDS: SIMVASTATIN 10 MG TABLET PO SCH (21:45)
[2020-10-02] MEDS: LATANOPROST 0.005% OPH SOLN 2.5 ML OU SCH (21:45)
[2020-10-02] MEDS: ZOLPIDEM TARTRATE 5 MG TABLET PO PRN (21:49)
[2020-10-03 06:02] LABS: ANION GAP 9 (5-19); BLOOD UREA NITROGEN 35 mg/dL (7-20); CALCIUM 9.1 mg/dL (8.4-10.2); CARBON DIOXIDE 27 mmol/L (22-30); CHLORIDE 102 mmol/L (98-107); GLUCOSE 104 mg/dL (75-110); POTASSIUM 5.1 mmol/L (3.6-5.0)
[2020-10-03] MEDS: INSULIN LISPRO 100 UNIT/ML 3 ML VIAL SUBCUT SCH ×4 (08:06→22:31)
[2020-10-03] MEDS: LOSARTAN POTASSIUM 50 MG TABLET PO SCH (09:16)
[2020-10-03] MEDS: DEXAMETHASONE SOD PHOSPHATE INJ 4 MG/1 ML VIAL IV SCH (09:16)
[2020-10-03] MEDS: ENOXAPARIN SODIUM INJ 40 MG/0.4 ML DISP.SYRIN SUBCUT SCH (09:17)
[2020-10-03] MEDS: HYDROCHLOROTHIAZIDE 25 MG TABLET PO SCH (09:17)
[2020-10-03] MEDS: FLUTICASONE/VILANTEROL 200-25 MCG/DOSE IH SCH (09:18)
[2020-10-03] MEDS: PANTOPRAZOLE SODIUM 40 MG TABLET.DR PO SCH (16:21)
[2020-10-03] MEDS: FEBUXOSTAT 80 MG TABLET PO SCH (17:54)
--- NOTE | 2020-10-03 18:37 | PDOC PROGRESS REPORT ---
Subjective Date:: 10/03/20 Subjective:: No adverse events overnight. No new complaints. Vital signs been stable. He l ikes to sit with the CPAP mask on with the oxygen plugged in. We took him off all oxygen for about an hour and his saturations were about 85% on room air. Reason For Visit: COVID-19 Physical Exam Vital Signs: Temp Pulse Resp BP Pulse Ox 97.6 F 96 22 H 113/63 92 10/03/20 15:54 10/03/20 15:54 10/03/20 15:54 10/03/20 15:54 10/03/20 15:54 Intake & Output 10/02/20 10/03/20 10/04/20 06:59 06:59 06:59 Intake Total 1042 640 702 Output Total 100 Balance 942 640 702 Weight 163.8 kg 163.8 kg General appearance: PRESENT: no acute distress, cooperative, disheveled, morbidly obese Respiratory exam: PRESENT: decreased breath sounds - A bit coarse, symmetrical, unlabored. ABSENT: accessory muscle use, chest wall tenderness, crackles, prolonged expiratory phase, rhonchi, tachypnea, wheezes Cardiovascular exam: PRESENT: RRR, +S1, +S2 Pulses: PRESENT: normal carotid pulses Vascular exam: PRESENT: normal capillary refill GI/Abdominal exam: PRESENT: normal bowel sounds, soft, other - Pendulous abdominal pannus. ABSENT: distended, guarding, rebound, tenderness Extremities exam: ABSENT: clubbing, pedal edema Musculoskeletal exam: PRESENT: ambulatory, normal inspection. ABSENT: deformity Neurological exam: PRESENT: alert, awake, oriented to person, oriented to place, oriented to situation Psychiatric exam: PRESENT: appropriate affect, normal mood Skin exam: PRESENT: dry, warm Results Laboratory Results: 09/27/20 05:03 10/03/20 04:41 10/03/20 04:41 Sodium 138.0 Potassium 5.1 H Chloride 102 Carbon Dioxide 27 Anion Gap 9 BUN 35 H Creatinine 1.84 H Est GFR ( Amer) 46 L Glucose 104 Calcium 9.1 Impressions: Chest X-Ray 09/26/20 11:11 IMPRESSION: LIMITED STUDY. CARDIOMEGALY. SUSPECT BILATERAL AIRSPACE DISEASE, PNEUMONIA VERSUS DEVELOPING EDEMA. Assessment and Plan - Diagnosis (1) COVID-19 Is this a current diagnosis for this admission?: Yes (2) Morbid obesity with BMI of 50.0-59.9, adult Is this a current diagnosis for this admission?: Yes (3) COPD (chronic obstructive pulmonary disease) Qualifiers: COPD type: chronic bronchitis Chronic bronchitis type: mixed simple and mucopurulent Qualified Code(s): J41.8 - Mixed simple and mucopurulent chronic bronchitis Is this a current diagnosis for this admission?: Yes (4) Hypertension Qualifiers: Hypertension type: essential hypertension Qualified Code(s): I10 - Ess ential (primary) hypertension Is this a current diagnosis for this admission?: Yes (5) Stage III chronic kidney disease Qualifiers: Chronic kidney disease stage 3 subtype: stage 3b (GFR 30-44) Qualified Code(s): N18.32 - Chronic kidney disease, stage 3b Is this a current diagnosis for this admission?: Yes (6) Non-insulin dependent diabetes mellitus with obesity Is this a current diagnosis for this admission?: Yes - Plan Summary Summary: He has completed remdesivir. He continues on Decadron. He is still hypoxic on room air at 85%. He seems to do well enough when he is on about 2 to 3 L. As long as he does not decompensate any further, we may be able to send him home on oxygen if he qualifies. I am not sure of what the rules are regarding home oxygen in the setting of an acute respiratory illness due to Covid. He has risk factors for developing severe disease and we are watching him closely. - Time Time Spent with patient: 15-24 minutes Anticipated Discharge Disposition: Home, Self Care Anticipated Discharge Timeframe: Unknown
[2020-10-03 19:12] LABS: APPEARANCE,URINE CLEAR; BILIRUBIN,URINE NEGATIVE (NEGATIVE); COLOR,URINE YELLOW; GLUCOSE, URINE NEGATIVE (NEGATIVE); KETONES,URINE NEGATIVE (NEGATIVE); LEUKOCYTE ESTERASE,URINE NEGATIVE (NEGATIVE); NITRITE,URINE NEGATIVE (NEGATIVE); PROTEIN,URINE 100 mg/dL (NEGATIVE); URINE SPECIFIC GRAVITY 1.017
[2020-10-03] MEDS: LATANOPROST 0.005% OPH SOLN 2.5 ML OU SCH (22:32)
[2020-10-03] MEDS: MELATONIN 5 MG TABLET PO SCH (22:32)
[2020-10-03] MEDS: SIMVASTATIN 10 MG TABLET PO SCH (22:32)
[2020-10-03] MEDS: ZOLPIDEM TARTRATE 5 MG TABLET PO PRN (22:43)
[2020-10-04 06:23] LABS: ANION GAP 11 (5-19); BLOOD UREA NITROGEN 36 mg/dL (7-20); CALCIUM 9.2 mg/dL (8.4-10.2); CARBON DIOXIDE 26 mmol/L (22-30); CHLORIDE 101 mmol/L (98-107); GLUCOSE 108 mg/dL (75-110); POTASSIUM 5.3 mmol/L (3.6-5.0)
[2020-10-04] MEDS: INSULIN LISPRO 100 UNIT/ML 3 ML VIAL SUBCUT SCH ×4 (08:00→22:18)
[2020-10-04 08:08] LABS: APPEARANCE,URINE CLEAR; BILIRUBIN,URINE NEGATIVE (NEGATIVE); COLOR,URINE YELLOW; GLUCOSE, URINE NEGATIVE (NEGATIVE); KETONES,URINE NEGATIVE (NEGATIVE); LEUKOCYTE ESTERASE,URINE NEGATIVE (NEGATIVE); NITRITE,URINE NEGATIVE (NEGATIVE); PROTEIN,URINE NEGATIVE (NEGATIVE); URINE SPECIFIC GRAVITY 1.013
[2020-10-04] MEDS ORDERED: SODIUM POLYSTYRENE SULFONATE 15 GM/60 ML PO ONE (08:30)
[2020-10-04] MEDS: LOSARTAN POTASSIUM 50 MG TABLET PO SCH (10:28)
[2020-10-04] MEDS: DEXAMETHASONE SOD PHOSPHATE INJ 4 MG/1 ML VIAL IV SCH (10:28)
[2020-10-04] MEDS: HYDROCHLOROTHIAZIDE 25 MG TABLET PO SCH (10:28)
[2020-10-04] MEDS: ENOXAPARIN SODIUM INJ 40 MG/0.4 ML DISP.SYRIN SUBCUT SCH (10:29)
[2020-10-04] MEDS: FLUTICASONE/VILANTEROL 200-25 MCG/DOSE IH SCH (10:35)
--- NOTE | 2020-10-04 15:37 | PDOC PROGRESS REPORT ---
Subjective Date:: 10/04/20 Subjective:: 60 year old male with a history of morbid obesity, ydp-jotbyek-wlxshpmka diabete s mellitus, COPD, hypertension, chronic kidney disease, and gout who said he started to feel sick about a week ago. On Friday he and his ex- went to go get tested for coronavirus. He said he has not been notified of the results. He said he thinks he may have had a fever last week but he does not think he has had anything like a fever in the last few days. He has had some cough and some shortness of breath when he ambulates but his breathing at rest is okay. He has been able to sleep, and he uses a CPAP. He has been eating and drinking without difficulty. He said he has not noticed any change in his sense of taste or smell. He said he came to the ER a few days ago and they gave him some Tessalon. He said that his ex-'s son tested positive for coronavirus and the patient had spent some time around this person, I cannot remember if the patient said that this person is in the hospital at this time. He came back to the ER today because he still gets a little winded whenever he walks. His oxygen saturations at rest are in the mid 90s. When he gets up and walks on room air his saturations dropped into the 80s but whenever he sits down to rest he comes back up into the mid upper 90s. He is afebrile here. He has some creatinine elevation that is at its baseline. Chest x-ray was limited by his body habitus, possible airspace opacities were suggested given the limitations. 09/27/20-No adverse events overnight. No new complaints. No fevers overnight. He gets short of breath when he gets up to go to the bathroom. He does appear to be just a little short of breath at rest but he says he feels okay. He told me that his ex- called him and said that the Covid test they received on Friday came back positive. Apparently they got it at [facility]. 09/28/20- No adverse events overnight. No fevers. Oxygenation has been stable on 2 L per nasal cannula. He still feels little short of breath at rest but his vital signs are good and stable. Eating and drinking without difficulty. 09/29-No adverse events overnight. No fevers. Oxygenation has been stable on 2 L per nasal cannula. He still feels little short of breath at rest but his vital signs are good and stable. Eating and drinking without difficulty. He said he still having some trouble sleeping. He said he feels something weird in his chest whenever he tries to fall asleep. I reviewed the telemetry and could not find anything that looked abnormal. His heart rate has been a little bit low and so we have been holding his atenolol. 09/30-No adverse events overnight. No new complaints. Vital signs been stable. Heart rate has improved. He said he still had trouble sleeping last night. I had ordered some Ambien but he did not request that in the nurses. I told him to make sure he requested tonight if he still having trouble sleeping. 10/01-No adverse events overnight. No new complaints. He said he has been wearing the oxygen and the CPAP because he is more comfortable while he wears it. I was hoping to be able to let him go home today after he finishes his last dose of remdesivir but his oxygen saturations were in the upper 80s on 2 L per nasal cannula. 10/02-No adverse events overnight. He did require more oxygen overnight. He was on 5 L overnight. We able to turn him down to 3 this morning, but he still at only 90% and he is bouncing between 88 and 90%. When he gets up to go to the bathroom his SPO2 drops and he gets tachycardic. 10/03-No adverse events overnight. No new complaints. Vital signs been stable. He likes to sit with the CPAP mask on with the oxygen plugged in. We took him off all oxygen for about an hour and his saturations were about 85% on room air. 10/04/2020-patient is comfortable in the chair on oxygen via nasal cannula. Pulse oxes are around 92 on room air. Plan is to reinstall oxygen supplementation at 1 L/min and reevaluate the discharge plan tomorrow. Reason For Visit: COVID-19 Physical Exam Vital Signs: Temp Pulse Resp BP Pulse Ox 97.3 F 73 18 135/77 H 93 10/04/20 08:14 10/04/20 08:14 10/04/20 08:14 10/04/20 08:14 10/04/20 08:14 Intake & Output 10/03/20 10/04/20 10/05/20 06:59 06:59 06:59 Intake Total 640 702 Balance 640 702 Weight 163.8 kg 160 kg General appearance: PRESENT: no acute distress, cooperative, morbidly obese Head exam: PRESENT: atraumatic Eye exam: PRESENT: PERRLA Mouth exam: PRESENT: moist, tongue midline Teeth exam: PRESENT: poor dentation Neck exam: ABSENT: carotid bruit, JVD, lymphadenopathy, thyromegaly Respiratory exam: PRESENT: decreased breath sounds GI/Abdominal exam: PRESENT: normal bowel sounds, soft. ABSENT: distended, guarding, mass, organolmegaly, rebound, tenderness Rectal exam: PRESENT: deferred Extremities exam: PRESENT: full ROM. ABSENT: calf tenderness, clubbing, pedal e elise Neurological exam: PRESENT: alert, awake, oriented to person, oriented to place, oriented to time, oriented to situation, CN II-XII grossly intact. ABSENT: motor sensory deficit Psychiatric exam: PRESENT: appropriate affect, normal mood. ABSENT: homicidal ideation, suicidal ideation Results Laboratory Results: 09/27/20 05:03 10/04/20 04:40 10/03/20 10/04/20 10/04/20 18:34 04:40 07:00 Sodium 137.8 Potassium 5.3 H Chloride 101 Carbon Dioxide 26 Anion Gap 11 BUN 36 H Creatinine 1.73 H Est GFR ( Amer) 49 L Glucose 108 Calcium 9.2 Urine Color YELLOW YELLOW Urine Appearance CLEAR CLEAR Urine pH 6.0 6.0 Ur Specific [place] 1.017 1.013 Urine Protein 100 H NEGATIVE Urine Glucose (UA) NEGATIVE NEGATIVE Urine Ketones NEGATIVE NEGATIVE Urine Blood NEGATIVE NEGATIVE Urine Nitrite NEGATIVE NEGATIVE Ur Leukocyte Esterase NEGATIVE NEGATIVE Urine WBC (Auto) 0 0 Urine RBC (Auto) 0 0 Impressions: Chest X-Ray 09/26/20 11:11 IMPRESSION: LIMITED STUDY. CARDIOMEGALY. SUSPECT BILATERAL AIRSPACE DISEASE, PNEUMONIA VERSUS DEVELOPING EDEMA. Assessment and Plan - Diagnosis (1) COVID-19 Is this a current diagnosis for this admission?: Yes Plan: 10/05/2020-patient admitted with COVID-19 pneumonia. He was here for last 8 days. Pulse ox is 92% on room air. To provide oxygen supplementations at 1liter per minute and reevaluate pulse ox tomorrow. pt completed remdesivir. Plan is to continue Decadron at this time. (2) Hypertension Qualifiers: Hypertension type: essential hypertension Qualified Code(s): I10 - Essential (primary) hypertension Is this a current diagnosis for this admission?: Yes Plan: 10/04/2020-blood pressure is 149/90. Stable. (3) Morbid obesity with BMI of 50.0-59.9, adult Is this a current diagnosis for this admission?: No Plan: 10/04/2020-patient BMI is more than 53. Diet exercise weight loss lifestyle modifications discussed with the patient. (4) Stage III chronic kidney disease Qualifiers: Chronic kidney disease stage 3 subtype: stage 3b (GFR 30-44) Qualified Code(s): N18.32 - Chronic kidney disease, stage 3b Is this a current diagnosis for this admission?: Yes (5) Non-insulin dependent diabetes mellitus with obesity Is this a current diagnosis for this admission?: No - Plan Summary Summary: He has completed remdesivir. He continues on Decadron. He is still hypoxic on room air at 85%. He seems to do well enough when he is on about 2 to 3 L. As long as he does not decompensate any further, we may be able to send him home on oxygen if he qualifies. I am not sure of what the rules are regarding home oxygen in the setting of an acute respiratory illness due to Covid. He has risk factors for developing severe disease and we are watching him closely. - Time Anticipated Discharge Disposition: Home, Self Care Anticipated Discharge Timeframe: within 48 hours
[2020-10-04] MEDS: PANTOPRAZOLE SODIUM 40 MG TABLET.DR PO SCH (17:12)
[2020-10-04] MEDS: FEBUXOSTAT 80 MG TABLET PO SCH (18:11)
[2020-10-04] MEDS: SIMVASTATIN 10 MG TABLET PO SCH (22:17)
[2020-10-04] MEDS: ZOLPIDEM TARTRATE 5 MG TABLET PO PRN (22:17)
[2020-10-04] MEDS: LATANOPROST 0.005% OPH SOLN 2.5 ML OU SCH (22:17)
[2020-10-04] MEDS: MELATONIN 5 MG TABLET PO SCH (22:17)
[2020-10-05 05:21] LABS: ABSOLUTE LYMPHOCYTES (AUTO) 0.8 10^3/uL (0.5-4.7); ABSOLUTE MONOCYTES (AUTO) 0.6 10^3/uL (0.1-1.4); ABSOLUTE NEUT (AUTO) 6.2 10^3/uL (1.7-8.2); BASOPHILS % (AUTO) 0.1 % (0-2); EOSINOPHILS % (AUTO) 0.6 % (0-6); HEMOGLOBIN 12.1 g/dL (13.5-17.0); LYMPHOCYTES % (AUTO) 10.2 % (13-45); MEAN CORPUSCULAR HEMOGLOBIN 24.9 pg (27.0-33.4); MEAN CORPUSCULAR HGB CONC 31.8 g/dL (32.0-36.0); MEAN CORPUSCULAR VOLUME 78 fl (80-97); MONOCYTES % (AUTO) 8.4 % (3-13); PLATELET COUNT 330 10^3/uL (150-450); RED BLOOD COUNT 4.86 10^6/uL (4.35-5.55); RED CELL DISTRIBUTION WIDTH 17.1 % (11.5-14.0); SEGMENTED NEUTROPHILS % (AUTO) 80.7 % (42-78); TOTAL CELLS COUNTED % (AUTO) 100 %; WHITE BLOOD COUNT 7.7 10^3/uL (4.0-10.5)
[2020-10-05 05:46] LABS: ALBUMIN 3.6 g/dL (3.5-5.0); ALKALINE PHOSPHATASE 65 U/L (38-126); ANION GAP 10 (5-19); ASPARTATE AMINO TRANSFERASE 66 U/L (17-59); BILIRUBIN,DIRECT 0.2 mg/dL (0.0-0.4); BILIRUBIN,TOTAL 0.5 mg/dL (0.2-1.3); BLOOD UREA NITROGEN 33 mg/dL (7-20); CALCIUM 9.1 mg/dL (8.4-10.2); CARBON DIOXIDE 27 mmol/L (22-30); CHLORIDE 99 mmol/L (98-107); GLUCOSE 114 mg/dL (75-110); POTASSIUM 4.9 mmol/L (3.6-5.0); TOTAL PROTEIN 6.9 g/dL (6.3-8.2)
[2020-10-05] MEDS: INSULIN LISPRO 100 UNIT/ML 3 ML VIAL SUBCUT SCH ×4 (07:55→23:09)
[2020-10-05] MEDS: DEXAMETHASONE SOD PHOSPHATE INJ 4 MG/1 ML VIAL IV SCH (09:52)
[2020-10-05] MEDS: LOSARTAN POTASSIUM 50 MG TABLET PO SCH (09:52)
[2020-10-05] MEDS: HYDROCHLOROTHIAZIDE 25 MG TABLET PO SCH (09:52)
[2020-10-05] MEDS: FLUTICASONE/VILANTEROL 200-25 MCG/DOSE IH SCH (09:53)
[2020-10-05] MEDS: ENOXAPARIN SODIUM INJ 40 MG/0.4 ML DISP.SYRIN SUBCUT SCH (09:53)
--- NOTE | 2020-10-05 15:48 | PDOC DISCHARGE SUMMARY ---
Impression - Admit/DC Date/PCP Admission Date/Primary Care Provider: 09/26/20 15:49 NISHA RAMIREZ Discharge Date: 10/05/20 - Discharge Diagnosis (1) COVID-19 Is this a current diagnosis for this admission?: Yes (2) Hypertension Is this a current diagnosis for this admission?: Yes (3) Morbid obesity with BMI of 50.0-59.9, adult Is this a current diagnosis for this admission?: No (4) Stage III chronic kidney disease Is this a current diagnosis for this admission?: Yes (5) Non-insulin dependent diabetes mellitus with obesity Is this a current diagnosis for this admission?: No - Assessment Summary: He has completed remdesivir. He continues on Decadron. He is still hypoxic on room air at 85%. He seems to do well enough when he is on about 2 to 3 L. As long as he does not decompensate any further, we may be able to send him home on oxygen if he qualifies. I am not sure of what the rules are regarding home oxygen in the setting of an acute respiratory illness due to Covid. He has risk factors for developing severe disease and we are watching him closely. (1) COVID-19 Is this a current diagnosis for this admission?: Yes Plan: 10/04/2020-patient admitted with COVID-19 pneumonia. He was here for last 8 days. Pulse ox is 92% on room air. To provide oxygen supplementations at 1liter per minute and reevaluate pulse ox tomorrow. pt completed remdesivir. Plan is to continue Decadron at this time. 10/05/2020-patient condition is stable, pulse oxes are in the 80s with walking and he is going home on oxygen supplementation 2 L via nasal cannula, zinc, dexamethasone, Eliquis 5 mg p.o. twice daily for 1 month. Patient is strongly advised to self quarantine at home. (2) Hypertension Qualifiers: Hypertension type: essential hypertension Qualified Code(s): I10 - Essential (primary) hypertension Is this a current diagnosis for this admission?: Yes Plan: 10/04/2020-blood pressure is 149/90. Stable. 10/05/2020-blood pressure today is 142/77. Stable. (3) Morbid obesity with BMI of 50.0-59.9, adult Is this a current diagnosis for this admission?: No Plan: 10/04/2020-patient BMI is more than 53. Diet exercise weight loss lifestyle modifications discussed with the patient. (4) Stage III chronic kidney disease Qualifiers: Chronic kidney disease stage 3 subtype: stage 3b (GFR 30-44) Qualified Code(s): N18.32 - Chronic kidney disease, stage 3b Is this a current diagnosis for this admission?: Yes (5) Non-insulin dependent diabetes mellitus with obesity Is this a current diagnosis for this admission?: No - Additional Information Discharge Diet: Cardiac Discharge Activity: Activity As Tolerated Referrals: NISHA RAMIREZ MD [Primary Care Provider] - 10/19/20 9:00 am Prescriptions: Dexamethasone [Decadron 4 mg Tablet] 4 mg PO AC 5 Days #5 tablet Apixaban [Eliquis 5 mg Tablet] 5 mg PO BID 30 Days #60 tablet Zinc Sulfate [Zinc-220 Capsule] 220 mg PO DAILY #30 capsule Home Medications: Albuterol Sulfate [Ventolin HFA MDI 18 GM] 2 puff IH Q4HP PRN #17 gm 08/30/12 Esomeprazole Magnesium [Nexium] 40 mg PO QPM 08/30/12 Atenolol [Tenormin 50 mg Tablet] 50 mg PO DAILY 09/26/20 Bimatoprost [Lumigan 0.01% Oph Soln 2.5 ml/Bottle] 1 drop OU QHS 09/26/20 Budesonide/Formoterol Fumarate [Symbicort HFA 160-4.5 mcg Inhaler 6 gm] 2 puff IH Q12 09/26/20 Febuxostat 80 mg PO QPM 09/26/20 Losartan/Hydrochlorothiazide [Losartan-Hctz 100-25 mg Tab] 1 each PO DAILY 09/26/20 Metformin HCl [Glucophage 500 mg Tablet] 1,000 mg PO BID 09/26/20 Pravastatin Sodium [Pravachol] 20 mg PO QHS 09/26/20 Apixaban [Eliquis 5 mg Tablet] 5 mg PO BID 30 Days #60 tablet 10/05/20 Dexamethasone [Decadron 4 mg Tablet] 4 mg PO AC 5 Days #5 tablet 10/05/20 Zinc Sulfate [Zinc-220 Capsule] 220 mg PO DAILY #30 capsule 10/05/20 History of Present Illiness History of Present Illness: LAYLA FRENCH is a 60 year old male 60 year old male with a history of morbid obesity, wkq-nzzzpjr-hnuzqpgzk diabetes mellitus, COPD, hypertension, chronic kidney disease, and gout who said he started to feel sick about a week ago. On Friday he and his ex- went to go get tested for coronavirus. He said he has not been notified of the results. He said he thinks he may have had a fever last week but he does not think he has had anything like a fever in the last few days. He has had some cough and some shortness of breath when he ambulates but his breathing at rest is okay. He has been able to sleep, and he uses a CPAP. He has been eating and drinking without difficulty. He said he has not noticed any change in his sense of taste or smell. He said he came to the ER a few days ago and they gave him some Tessalon. He said that his ex-'s son tested positive for coronavirus and the patient had spent some time around this person, I cannot remember if the patient said that this person is in the hospital at this time. He came back to the ER today because he still gets a little winded whenever he walks. His oxygen saturations at rest are in the mid 90s. When he gets up and walks on room air his saturations dropped into the 80s but whenever he sits down to rest he comes back up into the mid upper 90s. He is afebrile here. He has some creatinine elevation that is at its baseline. Chest x-ray was limited by his body habitus, possible airspace opacities were suggested given the limitations. Hospital Course Hospital Course: 60 year old male with a history of morbid obesity, ttl-cyfpcxf-fetxyntnm diabetes mellitus, COPD, hypertension, chronic kidney disease, and gout who said he started to feel sick about a week ago. On Friday he and his ex- went to go get tested for coronavirus. He said he has not been notified of the results. He said he thinks he may have had a fever last week but he does not think he has had anything like a fever in the last few days. He has had some cough and some shortness of breath when he ambulates but his breathing at rest is okay. He has been able to sleep, and he uses a CPAP. He has been eating and drinking without difficulty. He said he has not noticed any change in his sense of taste or smell. He said he came to the ER a few days ago and they gave him some Tessalon. He said that his ex-'s son tested positive for coronavirus and the patient had spent some time around this person, I cannot remember if the patient said that this person is in the hospital at this time. He came back to the ER today because he still gets a little winded whenever he walks. His oxygen saturations at rest are in the mid 90s. When he gets up and walks on room air his saturations dropped into the 80s but whenever he sits down to rest he comes back up into the mid upper 90s. He is afebrile here. He has some creatinine elevation that is at its baseline. Chest x-ray was limited by his body habitus, possible airspace opacities were suggested given the limitations. 09/27/20-No adverse events overnight. No new complaints. No fevers overnight. He gets short of breath when he gets up to go to the bathroom. He does appear to be just a little short of breath at rest but he says he feels okay. He told me that his ex- called him and said that the Covid test they received on Friday came back positive. Apparently they got it at [facility]. 09/28/20- No adverse events overnight. No fevers. Oxygenation has been stable on 2 L per nasal cannula. He still feels little short of breath at rest but his vital signs are good and stable. Eating and drinking without difficulty. 09/29-No adverse events overnight. No fevers. Oxygenation has been stable on 2 L per nasal cannula. He still feels little short of breath at rest but his vital signs are good and stable. Eating and drinking without difficulty. He said he still having some trouble sleeping. He said he feels something weird in his chest whenever he tries to fall asleep. I reviewed the telemetry and could not find anything that looked abnormal. His heart rate has been a little bit low and so we have been holding his atenolol. 09/30-No adverse events overnight. No new complaints. Vital signs been stable. Heart rate has improved. He said he still had trouble sleeping last night. I had ordered some Ambien but he did not request that in the nurses. I told him to make sure he requested tonight if he still having trouble sleeping. 10/01-No adverse events overnight. No new complaints. He said he has been wearing the oxygen and the CPAP because he is more comfortable while he wears it. I was hoping to be able to let him go home today after he finishes his last dose of remdesivir but his oxygen saturations were in the upper 80s on 2 L per nasal cannula. 10/02-No adverse events overnight. He did require more oxygen overnight. He was on 5 L overnight. We able to turn him down to 3 this morning, but he still at only 90% and he is bouncing between 88 and 90%. When he gets up to go to the bathroom his SPO2 drops and he gets tachycardic. 10/03-No adverse events overnight. No new complaints. Vital signs been stable. He likes to sit with the CPAP mask on with the oxygen plugged in. We took him off all oxygen for about an hour and his saturations were about 85% on room air. 10/04/2020-patient is comfortable in the chair on oxygen via nasal cannula. Pulse oxes are around 92 on room air. Plan is to reinstall oxygen supplementation at 1 L/min and reevaluate the discharge plan tomorrow. 10/05/2020-patient is comfortable in the chair communicating well. Pulse ox is 98% on room air. On walking pulse ox dropping to 80s requiring oxygen supplementation. Patient does qualify for home oxygen. Patient went home on Eliquis, zinc, dexamethasone. pt is advised to self quarantine for 2 weeks. Physical Exam Vital Signs: Temp Pulse Resp BP Pulse Ox 97.9 F 81 21 H 142/77 H 95 10/05/20 13:34 10/05/20 14:00 10/05/20 13:34 10/05/20 13:34 10/05/20 13:34 Intake & Output 10/04/20 10/05/20 10/06/20 06:59 06:59 06:59 Intake Total 702 1491 520 Output Total 680 200 Balance 702 811 320 Weight 160 kg 155.3 kg General appearance: PRESENT: no acute distress, cooperative, morbidly obese, well-developed Head exam: PRESENT: atraumatic Eye exam: PRESENT: PERRLA Ear exam: PRESENT: normal external ear exam Mouth exam: PRESENT: neck supple Teeth exam: PRESENT: poor dentation Neck exam: ABSENT: carotid bruit, JVD, lymphadenopathy, thyromegaly Respiratory exam: PRESENT: decreased breath sounds Cardiovascular exam: PRESENT: RRR. ABSENT: diastolic murmur, rubs, systolic murmur GI/Abdominal exam: PRESENT: normal bowel sounds, soft. ABSENT: distended, guarding, mass, organolmegaly, rebound, tenderness Rectal exam: PRESENT: deferred Extremities exam: PRESENT: full ROM. ABSENT: calf tenderness, clubbing, pedal edema Neurological exam: PRESENT: alert, awake, oriented to person, oriented to place, oriented to time, oriented to situation, CN II-XII grossly intact. ABSENT: motor sensory deficit Psychiatric exam: PRESENT: appropriate affect, normal mood. ABSENT: homicidal ideation, suicidal ideation Results Laboratory Results: WBC 7.7 10^3/uL (4.0-10.5) 10/05/20 04:23 RBC 4.86 10^6/uL (4.35-5.55) 10/05/20 04:23 Hgb 12.1 g/dL (13.5-17.0) L 10/05/20 04:23 Hct 38.0 % (37.9-51.0) 10/05/20 04:23 MCV 78 fl (80-97) L 10/05/20 04:23 MCH 24.9 pg (27.0-33.4) L 10/05/20 04:23 MCHC 31.8 g/dL (32.0-36.0) L 10/05/20 04:23 RDW 17.1 % (11.5-14.0) H 10/05/20 04:23 Plt Count 330 10^3/uL (150-450) 10/05/20 04:23 Lymph % (Auto) 10.2 % (13-45) L 10/05/20 04:23 [place] % (Auto) 8.4 % (3-13) 10/05/20 04:23 Eos % (Auto) 0.6 % (0-6) 10/05/20 04:23 Baso % (Auto) 0.1 % (0-2) 10/05/20 04:23 Absolute Neuts (auto) 6.2 10^3/uL (1.7-8.2) 10/05/20 04:23 Absolute Lymphs (auto) 0.8 10^3/uL (0.5-4.7) 10/05/20 04:23 Absolute Monos (auto) 0.6 10^3/uL (0.1-1.4) 10/05/20 04:23 Absolute Eos (auto) 0.0 10^3/uL (0.0-0.6) 10/05/20 04:23 Absolute Basos (auto) 0.0 10^3/uL (0.0-0.2) 10/05/20 04:23 Seg Neutrophils % 80.7 % (42-78) H 10/05/20 04:23 D-Dimer 1.32 ug/mL (0.00-0.50) H 09/27/20 10:45 Sodium 136.3 mmol/L (137-145) L 10/05/20 04:23 Potassium 4.9 mmol/L (3.6-5.0) 10/05/20 04:23 Chloride 99 mmol/L (98-107) 10/05/20 04:23 Carbon Dioxide 27 mmol/L (22-30) 10/05/20 04:23 Anion Gap 10 (5-19) 10/05/20 04:23 BUN 33 mg/dL (7-20) H 10/05/20 04:23 Creatinine 1.70 mg/dL (0.52-1.25) H 10/05/20 04:23 Est GFR ( Amer) 50 (>60) L 10/05/20 04:23 Est GFR (MDRD) Non-Af 42 (>60) L 10/05/20 04:23 Glucose 114 mg/dL (75-110) H 10/05/20 04:23 POC Glucose 132 mg/dL (70-110) H 10/05/20 12:32 Calcium 9.1 mg/dL (8.4-10.2) 10/05/20 04:23 Magnesium 1.9 mg/dL (1.6-2.3) 10/05/20 04:23 Total Bilirubin 0.5 mg/dL (0.2-1.3) 10/05/20 04:23 Direct Bilirubin 0.2 mg/dL (0.0-0.4) 10/05/20 04:23 Neonat Total Bilirubin Not Reportable 10/05/20 04:23 Neonat Direct Bilirubin Not Reportable 10/05/20 04:23 Neonat Indirect Bili Not Reportable 10/05/20 04:23 AST 66 U/L (17-59) H 10/05/20 04:23 ALT 134 U/L (<50) H 10/05/20 04:23 Alkaline Phosphatase 65 U/L (38-126) 10/05/20 04:23 Total Protein 6.9 g/dL (6.3-8.2) 10/05/20 04:23 Albumin 3.6 g/dL (3.5-5.0) 10/05/20 04:23 Urine Color YELLOW 10/04/20 07:00 Urine Appearance CLEAR 10/04/20 07:00 Urine pH 6.0 (5.0-9.0) 10/04/20 07:00 Ur Specific [place] 1.013 10/04/20 07:00 Urine Protein NEGATIVE mg/dL (NEGATIVE) 10/04/20 07:00 Urine Glucose (UA) NEGATIVE mg/dL (NEGATIVE) 10/04/20 07:00 Urine Ketones NEGATIVE mg/dL (NEGATIVE) 10/04/20 07:00 Urine Blood NEGATIVE (NEGATIVE) 10/04/20 07:00 Urine Nitrite NEGATIVE (NEGATIVE) 10/04/20 07:00 Urine Bilirubin NEGATIVE (NEGATIVE) 10/04/20 07:00 Urine Urobilinogen 4.0 mg/dL (<2.0) H 10/04/20 07:00 Ur Leukocyte Esterase NEGATIVE (NEGATIVE) 10/04/20 07:00 Urine WBC (Auto) 0 /HPF 10/04/20 07:00 Urine RBC (Auto) 0 /HPF 10/04/20 07:00 Urine Bacteria (Auto) TRACE /HPF 09/26/20 12:30 Squamous Epi Cells Auto <1 /HPF 10/04/20 07:00 Urine Mucus (Auto) RARE /LPF 10/03/20 18:34 Urine Ascorbic Acid NEGATIVE (NEGATIVE) 10/04/20 07:00 COVID-19 Source See comment 09/26/20 13:55 COVID-19 (RA) DETECTED (Not Detect) A 09/26/20 13:55 Impressions: Chest X-Ray 09/26/20 11:11 IMPRESSION: LIMITED STUDY. CARDIOMEGALY. SUSPECT BILATERAL AIRSPACE DISEASE, PNEUMONIA VERSUS DEVELOPING EDEMA. Plan Time Spent: Greater than 30 Minutes Stroke Is this a Stroke Patient?: No Acute Heart Failure Is this a Heart Failure Patient?: No
[2020-10-05] MEDS: FEBUXOSTAT 80 MG TABLET PO SCH (17:19)
[2020-10-05] MEDS: PANTOPRAZOLE SODIUM 40 MG TABLET.DR PO SCH (17:19)
[2020-10-05] MEDS: MELATONIN 5 MG TABLET PO SCH (23:08)
[2020-10-05] MEDS: SIMVASTATIN 10 MG TABLET PO SCH (23:08)
[2020-10-05] MEDS: LATANOPROST 0.005% OPH SOLN 2.5 ML OU SCH (23:09)
[2020-10-06] MEDS: INSULIN LISPRO 100 UNIT/ML 3 ML VIAL SUBCUT SCH (08:16)
[2020-10-06] MEDS: FLUTICASONE/VILANTEROL 200-25 MCG/DOSE IH SCH (10:37)
[2020-10-06] MEDS: ENOXAPARIN SODIUM INJ 40 MG/0.4 ML DISP.SYRIN SUBCUT SCH (10:37)
[2020-10-06] MEDS: DEXAMETHASONE SOD PHOSPHATE INJ 4 MG/1 ML VIAL IV SCH (10:37)
[2020-10-06] MEDS: LOSARTAN POTASSIUM 50 MG TABLET PO SCH (10:37)
[2020-10-06] MEDS: HYDROCHLOROTHIAZIDE 25 MG TABLET PO SCH (10:37)
[2020-10-06 13:36] VITALS: BP 115/80
== END 2020-10-06 13:29 | disposition home or self-care (01) | DRG 177 ==
LOC: ER 08:49 → INTOOBSV 15:49 → OBSVTOIN 15:49 → EH 15:49 → 3N 17:10
PROVIDERS: ADMIT Family Medicine; ATTEND Internal Medicine
PROC: XW033E5 Introduction of Remdesivir Anti-infective into Peripheral Vein, Percutaneous Approach, New Technology Group 5 (ICD-10-PCS; principal; 2020-09-27)
DX: U07.1 COVID-19 (principal); J12.89 Other viral pneumonia; Z68.43 Body mass index [BMI] 50.0-59.9, adult; I13.0 Hypertensive heart and chronic kidney disease with heart failure and stage 1 through stage 4 chronic kidney disease, or unspecified chronic kidney disease; I50.9 Heart failure, unspecified; J41.8 Mixed simple and mucopurulent chronic bronchitis; E11.22 Type 2 diabetes mellitus with diabetic chronic kidney disease; N18.32 Chronic kidney disease, stage 3b; E66.01 Morbid (severe) obesity due to excess calories; E78.5 Hyperlipidemia, unspecified; Z87.891 Personal history of nicotine dependence; Z82.49 Family history of ischemic heart disease and other diseases of the circulatory system; Z83.3 Family history of diabetes mellitus; Z88.0 Allergy status to penicillin; Z91.013 Allergy to seafood; Z79.84 Long term (current) use of oral hypoglycemic drugs
CPT/HCPCS: 36415; 71045; 80048; 80053; 81001; 82962; 83735; 85025; 85027; 85379; 87635; 93005; 93010; 94660; 99285; C9803; G0378; J1100; J1650; J1815; J3490; J7050

== ENCOUNTER 2020-10-06 23:50 | Inpatient (IN) | payer MEDICARE, MEDICAID ==
[2020-10-07 03:02] LABS: ABSOLUTE BASOPHILS # (AUTO) 0.1 10^3/uL (0.0-0.2); ABSOLUTE LYMPHOCYTES (AUTO) 1.8 10^3/uL (0.5-4.7); ABSOLUTE NEUT (AUTO) 15.2 10^3/uL (1.7-8.2); BASOPHILS % (AUTO) 0.4 % (0-2); EOSINOPHILS % (AUTO) 0.2 % (0-6); LYMPHOCYTES % (AUTO) 9.4 % (13-45); MEAN CORPUSCULAR HEMOGLOBIN 25.1 pg (27.0-33.4); MEAN CORPUSCULAR HGB CONC 31.8 g/dL (32.0-36.0); MEAN CORPUSCULAR VOLUME 79 fl (80-97); MONOCYTES % (AUTO) 10.5 % (3-13); PLATELET COUNT 514 10^3/uL (150-450); RED BLOOD COUNT 5.57 10^6/uL (4.35-5.55); RED CELL DISTRIBUTION WIDTH 17.2 % (11.5-14.0); SEGMENTED NEUTROPHILS % (AUTO) 79.5 % (42-78); TOTAL CELLS COUNTED % (AUTO) 100 %
[2020-10-07 03:04] LABS: WHITE BLOOD COUNT 19.1 10^3/uL (4.0-10.5)
[2020-10-07 03:09] LABS: ALBUMIN 4.6 g/dL (3.5-5.0); ALKALINE PHOSPHATASE 88 U/L (38-126); ANION GAP 19 (5-19); ASPARTATE AMINO TRANSFERASE 102 U/L (17-59); BILIRUBIN,DIRECT 0.1 mg/dL (0.0-0.4); BILIRUBIN,TOTAL 0.4 mg/dL (0.2-1.3); BLOOD UREA NITROGEN 43 mg/dL (7-20); CALCIUM 10.3 mg/dL (8.4-10.2); CARBON DIOXIDE 19 mmol/L (22-30); CHLORIDE 103 mmol/L (98-107); GLUCOSE 85 mg/dL (75-110); POTASSIUM 4.9 mmol/L (3.6-5.0); TOTAL PROTEIN 8.4 g/dL (6.3-8.2)
--- NOTE | 2020-10-07 03:19 | RADIOLOGY REPORT (SQ) ---
CHEST X-RAY 1 VIEW on 10/07/2020 at 2:46 AM CLINICAL INDICATION: Shortness of breath COMPARISON: 09/26/2020 FINDINGS: There is elevation of the left hemidiaphragm. Cardiomegaly is noted. There are bilateral interstitial and likely some airspace opacities consistent with edema and/or pneumonia, differential diagnosis would include viral infections. Hilar and mediastinal contours are within normal limits. IMPRESSION: Findings consistent with bilateral edema and/or pneumonia, differential diagnosis would include viral infections.
[2020-10-07] MEDS ORDERED: NORMAL SALINE 250 ML IV ONE (04:21)
[2020-10-07] MEDS ORDERED: DEXAMETHASONE SOD PHOS INJ 10 MG/1 ML VIAL IV ONE (04:21)
[2020-10-07] MEDS ORDERED: IPRATROPIUM/ALBUTEROL 0.5-2.5 MG/3 ML AMPUL NEB ONE (04:22)
--- NOTE | 2020-10-07 04:22 | ER Document Report ---
ED General - General Chief Complaint: Breathing Difficulty Stated Complaint: COVID + DIFFICULTY BREATHING/HEART RACING Time Seen by Provider: 10/07/20 03:20 Primary Care Provider: NISHA RAMIREZ MD [Primary Care Provider] - Follow up as needed Information source: Patient TRAVEL OUTSIDE OF THE [place] IN LAST 30 DAYS: No - HPI Context: This is a 60-year-old male with a history of COPD presenting to the emergency department complaining of dyspnea. Patient was discharged from this hospital yesterday afternoon after a 10-day stay for COVID-19 pneumonia. Patient was discharged from with home O2 at 2.5 L by nasal cannula. Patient was also discharged with a prescription for zinc, a DuoNeb inhaler. Patient was previously seen in the ED here about 11 days ago and presented with shortness of breath and stated that he had a Covid test done but was awaiting the results. Patient ended up being admitted to the medical service, completed a course of re mdesivir, was given a prescription for 4 additional days of 5 mg of Decadron. Patient admits to dyspnea with activity but denies loss of sense of taste in loss of sense of smell. Patient states he was at home alone and was feeling as though his shortness of breath was getting worse despite being on oxygen. Patient admits that given the sensation of dyspnea and being alone at time he got anxious and decided to call 911. Patient states that his dyspnea gets worse with activity. Patient states dyspnea is improved if he is at rest with his oxygen on. Patient denies fever, chest pain. Patient states he is having some diarrhea that started earlier today. Patient denies nausea and vomiting. Patient denies abdominal pain. . Associated symptoms: Other - See HPI Exacerbated by: Other - See HPI Relieved by: Other - See HPI Similar symptoms previously: Yes Recently seen / treated by doctor: Yes - Related Data Allergies/Adverse Reactions: Penicillins Allergy (Unknown, Verified 09/26/20 10:35) shellfish derived Allergy (Verified 09/26/20 10:35) Past Medical History - General Information source: Patient - Social History Smoking Status: Former Smoker Frequency of alcohol use: None Drug Abuse: None Family History: Reviewed & Not Pertinent, Arthritis, CAD, DM, Hyperlipidemia, Hypertension, Malignancy, Thyroid Disfunction Patient has suicidal ideation: No Patient has homicidal ideation: No - Past Medical History Cardiac Medical History: Reports: Hx Congestive Heart Failure, Hx Hypercholesterolemia, Hx Hypertension Pulmonary Medical History: Reports: Hx Bronchitis, Hx COPD Endocrine Medical History: Reports: Hx Diabetes Mellitus Type 1, Hx Diabetes Mellitus Type 2 Renal/ Medical History: Reports: Hx End Stage Renal Disease GI Medical History: Reports: Hx Gastroesophageal Reflux Disease, Hx Hiatal Hernia, Hx Ulcer Musculoskeletal Medical History: Reports Hx Arthritis, Reports Hx Gout, Reports Hx Musculoskeletal Deformity, Reports Hx Musculoskeletal Trauma Psychiatric Medical History: Reports: Hx Anxiety Denies: Hx Depression Traumatic Medical History: Reports: Hx Fractures - patella Past Surgical History: Reports: Hx Orthopedic Surgery - BL ankles, Hx Tonsillectomy - Immunizations Hx Diphtheria, Pertussis, Tetanus Vaccination: No Review of Systems - Review of Systems Constitutional: See HPI EENT: No symptoms reported Cardiovascular: denies: Chest pain Respiratory: Short of breath Gastrointestinal: Diarrhea. denies: Nausea, Vomiting Genitourinary: No symptoms reported Male Genitourinary: No symptoms reported Musculoskeletal: No symptoms reported Skin: No symptoms reported Hematologic/Lymphatic: No symptoms reported Neurological/Psychological: Anxiety -: Yes All other systems reviewed and negative Physical Exam - Vital signs Vitals: Temp Pulse Resp BP Pulse Ox 98.1 F 125 H 24 H 144/84 H 92 10/07/20 00:05 10/07/20 00:05 10/07/20 00:05 10/07/20 00:05 10/07/20 00:05 - Notes Notes: CONSTITUTIONAL [Vital signs reviewed, Patient appears comfortable, Alert and oriented X 3, Normal stature.] HEAD [Atraumatic, Normocephalic.] EYES [Eyes are normal to inspection, No discharge from eyes, Extraocular muscles intact, Sclera are normal, Conjunctiva are normal.] ENT [External ears normal to inspection, Nose examination normal, Mouth normal to inspection.] NECK [Normal ROM, No jugular venous distention, No meningeal signs, ] RESPIRATORY CHEST [Chest is nontender, Breath sounds normal, No respiratory distress.] CARDIOVASCULAR [RRR, No murmurs, Normal S1 S2, No rub, No gallop.] ABDOMEN [Abdomen is nontender, No pulsatile masses, No other masses, Bowel sounds normal, No distension, No peritoneal signs, No hernias.] BACK [There is no CVA Tenderness, There is no tenderness to palpation, Normal in spection.] UPPER EXTREMITY [Inspection normal, No cyanosis, No clubbing, No edema, LOWER EXTREMITY , No cyanosis, No clubbing, 1+ pitting edema present in bilateral lower extremities, No calf tenderness, NEURO [No focal motor deficits, No focal sensory deficits, Speech normal.] SKIN [Skin is warm, Skin is dry, Skin is normal color.] PSYCHIATRIC [Anxious affect] Course - Re-evaluation Re-evalutation: 10/07/20 06:21 Results of ED MSE discussed with patient. It appears that the patient is having hypoxic respiratory failure secondary to COVID-19 pneumonia. Recommendation for admission discussed with patient. Patient is agreeable to being readmitted. - Vital Signs Vital signs: Temp Pulse Resp BP Pulse Ox 98.7 F 125 H 23 H 132/85 H 97 10/07/20 05:45 10/07/20 00:05 10/07/20 06:00 10/07/20 02:31 10/07/20 06:00 - Laboratory Result Diagrams: 10/07/20 02:37 10/07/20 02:37 Laboratory results interpreted by me: 10/07/20 10/07/20 02:37 02:37 WBC 19.1 H D RBC 5.57 H MCV 79 L MCH 25.1 L MCHC 31.8 L RDW 17.2 H Plt Count 514 H Lymph % (Auto) 9.4 L Absolute Neuts (auto) 15.2 H Absolute Monos (auto) 2.0 H Seg Neutrophils % 79.5 H Carbon Dioxide 19 L BUN 43 H Creatinine 2.17 H Est GFR ( Amer) 38 L Est GFR (MDRD) Non-Af 31 L Calcium 10.3 H AST 102 H ALT 231 H Total Protein 8.4 H - Diagnostic Test Radiology reviewed: Reports reviewed - EKG Interpretation by Me Additional EKG results interpreted by me: 10/07/20 06:13 EKG done on 10/07/2020 at 0234 hrs. was interpreted by this MD. Findings: Sinus tachycardia, rate 119, ME interval appears to be within normal limits, P waves proceed QRS complexes, QRS complex appears narrow, QTC is 456, there are no obvious patterns of ST segment elevation, depression, reciprocal changes seen to suggest acute myocardial ischemia or infarction. There is no prior EKG avai lable for comparison. Impression: Sinus tachycardia with nonspecific ST segments. - Consults Dr. Hsieh Time consulted: 06:20 - dr. Hsieh agreed to admit patient Reason for consultation: 10/07/20 06:23 Hypoxic respiratory failure secondary to COVID-19 pneumonia Consulted provider: will come to ER Critical Care Note - Critical Care Note Total time excluding time spent on procedures (mins): 120 - Management of hypoxic respiratory failure secondary to COVID-19 pneumonia Discharge - Discharge Clinical Impression: Pneumonia due to COVID-19 virus, Hypoxia Respiratory failure Qualifiers: Chronicity: unspecified Respiratory failure complication: hypoxia Qualified Code(s): J96.91 - Respiratory failure, unspecified with hypoxia Condition: Stable Disposition: ADMITTED INPATIENT Admitting Provider: Unit Admitted: Medical Floor Referrals: NISHA RAMIREZ MD [Primary Care Provider] - Follow up as needed
[2020-10-07] MEDS ORDERED: ACETAMINOPHEN 325 MG TABLET PO PRN (07:28)
[2020-10-07] MEDS ORDERED: IPRATROPIUM/ALBUTEROL 0.5-2.5 MG/3 ML AMPUL NEB PRN (07:28)
--- NOTE | 2020-10-07 07:32 | PDOC H&P ---
History of Present Illness Admission Date/PCP: 10/07/20 06:39 NISHA RAMIREZ Patient complains of: Shortness of breath History of Present Illness: LAYLA FRENCH is a 60 year old male with a history of hypertension, diabetes, CKD 3 and morbid obesity discharged 1 day ago a 10-day Stay where he was admitted for respiratory failure from Covid pneumonia. Patient completed a course of remdesivir and over the course of his hospital stay he improved but he had continued to feel short of breath and had spells of hypoxia with exertion. He was discharged with 2 and half liters intranasal oxygen. But patient reports that after he arrived home shortness of breath continued to get worse especially with exertion while using intranasal oxygen. Today he tried to take a bath but he was unable to due to severe shortness of breath. He states that he was unable to do any of his daily activities including going to the bathroom. He feels lightheaded and short of breath with minimal exertion. Patient states that his is also admitted to hospital due to COVID-19 and there is no one to help him. He denies fever, chest pain, palpitation, nausea, vomiting or di arrhea. Past Medical History Cardiac Medical History: Reports: Congestive Heart Failure, Hyperlipidema, Hypertension Pulmonary Medical History: Reports: Bronchitis, Chronic Obstructive Pulmonary Disease (COPD) Endocrine Medical History: Reports: Diabetes Mellitus Type 1, Diabetes Mellitus Type 2 Renal/ Medical History: Reports: End Stage Renal Disease GI Medical History: Reports: Gastroesophageal Reflux Disease, Hiatal Hernia Musculoskeltal Medical History: Reports: Arthritis, Gout Psychiatric Medical History: Denies: Depression Past Surgical History Past Surgical History: Reports: Orthopedic Surgery - BL ankles, Tonsillectomy Social History Information Source: Patient Lives with: Family Smoking Status: Former Smoker Frequency of Alcohol Use: None Hx Recreational Drug Use: No Drugs: None Hx Prescription Drug Abuse: No - Advance Directive Resuscitation Status: Full Code Family History Family History: Reviewed & Not Pertinent, Arthritis, CAD, DM, Hyperlipidemia, Hypertension, Malignancy, Thyroid Disfunction Parental Family History Reviewed: Yes Children Family History Reviewed: Yes Sibling(s) Family History Reviewed.: Yes Medication/Allergy Home Medications: Albuterol Sulfate [Ventolin HFA MDI 18 GM] 2 puff IH Q4HP PRN #17 gm 08/30/12 Esomeprazole Magnesium [Nexium] 40 mg PO QPM 08/30/12 Atenolol [Tenormin 50 mg Tablet] 50 mg PO DAILY 09/26/20 Bimatoprost [Lumigan 0.01% Oph Soln 2.5 ml/Bottle] 1 drop OU QHS 09/26/20 Budesonide/Formoterol Fumarate [Symbicort HFA 160-4.5 mcg Inhaler 6 gm] 2 puff IH Q12 09/26/20 Febuxostat 80 mg PO QPM 09/26/20 Losartan/Hydrochlorothiazide [Losartan-Hctz 100-25 mg Tab] 1 each PO DAILY 09/26/20 Metformin HCl [Glucophage 500 mg Tablet] 1,000 mg PO BID 09/26/20 Pravastatin Sodium [Pravachol] 20 mg PO QHS 09/26/20 Apixaban [Eliquis 5 mg Tablet] 5 mg PO BID 30 Days #60 tablet 10/05/20 Dexamethasone [Decadron 4 mg Tablet] 4 mg PO AC 5 Days #5 tablet 10/05/20 Zinc Sulfate [Zinc-220 Capsule] 220 mg PO DAILY #30 capsule 10/05/20 Allergies/Adverse Reactions: Penicillins Allergy (Unknown, Verified 09/26/20 10:35) shellfish derived Allergy (Verified 09/26/20 10:35) Review of Systems Constitutional: PRESENT: as per HPI, fatigue, weakness. ABSENT: anorexia, chills, fever(s), headache(s), night sweats, weight gain, weight loss Eyes: ABSENT: visual disturbances Ears: ABSENT: hearing changes Nose, Mouth, and Throat: ABSENT: headache(s), mouth pain, sore throat Cardiovascular: PRESENT: as per HPI Respiratory: PRESENT: as per HPI Gastrointestinal: ABSENT: abdominal pain, constipation, diarrhea, hematemesis, hematochezia, nausea, vomiting Genitourinary: ABSENT: dysuria, hematuria Musculoskeletal: PRESENT: muscle weakness. ABSENT: back pain, deformity, joint swelling Integumentary: ABSENT: rash, wounds Neurological: ABSENT: abnormal gait, abnormal speech, confusion, dizziness, f ocal weakness, syncope Psychiatric: ABSENT: anxiety, depression, homidical ideation, suicidal ideation Endocrine: ABSENT: cold intolerance, heat intolerance, polydipsia, polyuria Hematologic/Lymphatic: ABSENT: easy bleeding, easy bruising Physical Exam Vital Signs: Temp Pulse Resp BP Pulse Ox 98.7 F 125 H 23 H 132/85 H 97 10/07/20 05:45 10/07/20 00:05 10/07/20 06:00 10/07/20 02:31 10/07/20 06:00 Intake & Output 10/06/20 10/07/20 10/08/20 06:59 06:59 06:59 Intake Total 250 Balance 250 Weight 162 kg Additional comments: GENERAL APPEARANCE: Alert and oriented x3, in no acute distress, breathing comfortably on 3 L intranasal oxygen HEENT: Normocephalic and atraumatic. No scleral icterus. Moist oral mucosa NECK: Supple. No lymphadenopathy or tenderness. CHEST: Symmetric. Nontender to palpation. LUNGS: Clear with good air entry bilaterally. No wheezing or crackles HEART: Regular rate and rhythm with normal S1 and S2. No murmurs, gallops, or rubs. ABDOMEN: Flat, soft, active bowel sounds, no direct or rebound tenderness. No organomegaly detected. No CVA tenderness EXTREMITIES: No cyanosis, clubbing, or edema. MUSCULOSKELETAL: No deformity, atrophy or swelling noted PSYCHIATRIC: Recent and remote memory is intact. Appropriate mood and affect. SKIN: Warm, dry, and well perfused. No lesions or rashes are noted. NEUROLOGIC: No focal sensory or motor deficits are noted. Results Laboratory Results: 10/07/20 02:37 10/07/20 02:37 10/07/20 10/07/20 02:37 02:37 WBC 19.1 H D RBC 5.57 H Hgb 14.0 Hct 44.0 MCV 79 L MCH 25.1 L MCHC 31.8 L RDW 17.2 H Plt Count 514 H Seg Neutrophils % 79.5 H Sodium 140.8 Potassium 4.9 Chloride 103 Carbon Dioxide 19 L Anion Gap 19 BUN 43 H Creatinine 2.17 H Est GFR ( Amer) 38 L Glucose 85 Calcium 10.3 H Total Bilirubin 0.4 AST 102 H Alkaline Phosphatase 88 Total Protein 8.4 H Albumin 4.6 Impressions: Chest X-Ray 10/07/20 02:31 IMPRESSION: Findings consistent with bilateral edema and/or pneumonia, differential diagnosis would include viral infections. Assessment and Plan - Diagnosis (1) Respiratory failure Qualifiers: Chronicity: unspecified Respiratory failure complication: hypoxia Qualified Code(s): J96.91 - Respiratory failure, unspecified with hypoxia Is this a current diagnosis for this admission?: Yes Plan: Due to COVID-19 pneumonia Patient currently saturating well on 3 L intranasal oxygen Titrate intranasal oxygen saturation above 94% Continued dexamethasone, zinc, vitamin D and vitamin C Continue supportive care (2) Pneumonia due to COVID-19 virus Is this a current diagnosis for this admission?: Yes Plan: Patient continues to feel short of breath Chest x-ray still shows bilateral airspace infiltrates consistent with viral pneumonia Recently discharged after a 10-day course of remdesivir Continue dexamethasone, vitamin D, vitamin C and zinc Tylenol as needed for fever Titrate intranasal oxygen to optimize oxygen saturation (3) Acute kidney injury superimposed on CKD Is this a current diagnosis for this admission?: Yes Plan: BUN/creatinine was elevated to 43/2.17 from a baseline creatinine of around 1.7 Patient was hydrated at the ED We will closely monitor renal indicis Avoid nephrotoxic drugs and renally dose medications (4) Hypertension Qualifiers: Hypertension type: essential hypertension Qualified Code(s): I10 - Essential (primary) hypertension Is this a current diagnosis for this admission?: Yes Plan: BP is within acceptable range, continue home medications (5) Morbid obesity with BMI of 50.0-59.9, adult Is this a current diagnosis for this admission?: Yes Plan: Continue nutritional counseling consider dietitian consult (6) Non-insulin dependent diabetes mellitus with obesity Is this a current diagnosis for this admission?: Yes Plan: Continue sliding scale insulin with Accu-Chek and hypoglycemia protocol - Time Time Spent with patient: 35 or more minutes Total Critical Time (Minutes): 35 Medications reviewed and adjusted accordingly: Yes Anticipated Discharge Disposition: Home with Home Health Anticipated Discharge Timeframe: within 48 hours - Inpatient Certification Based on my medical assessment, after consideration of the patient's comorbidities, presenting symptoms, or acuity I expect that the services needed warrant INPATIENT care.: Yes I certify that my determination is in accordance with my understanding of Medicare's requirements for reasonable and necessary INPATIENT services [42 CFR 412.3e].: Yes Medical Necessity: Failure to Improve With Outpatient Therapy, Need Close Monitoring Due to Risk of Patient Decompensation, Risk of Complication if Not Cared For in Hospital Post Hospital Care: D/C or Transfer Summary
[2020-10-07] MEDS ORDERED: DEXTROSE 50%-WATER 25 GM/50 ML DISP.SYRIN IV PRN ×2 (08:30)
[2020-10-07] MEDS ORDERED: DEXTROSE 40% GEL 15 GM TUBE PO PRN ×2 (08:30)
[2020-10-07] MEDS ORDERED: GLUCAGON,HUMAN RECOMB 1 MG INJ IM PRN (08:30)
[2020-10-07 09:24] LABS: APPEARANCE,URINE CLEAR; BILIRUBIN,URINE NEGATIVE (NEGATIVE); COLOR,URINE YELLOW; GLUCOSE, URINE NEGATIVE (NEGATIVE); KETONES,URINE NEGATIVE (NEGATIVE); LEUKOCYTE ESTERASE,URINE NEGATIVE (NEGATIVE); NITRITE,URINE NEGATIVE (NEGATIVE); PROTEIN,URINE 30 mg/dL (NEGATIVE); URINE SPECIFIC GRAVITY 1.018
[2020-10-07] MEDS ORDERED: ENOXAPARIN SODIUM INJ 40 MG/0.4 ML DISP.SYRIN SUBCUT SCH (10:00)
[2020-10-07] MEDS ORDERED: DEXAMETHASONE SOD PHOS INJ 10 MG/1 ML VIAL IV SCH (10:00)
[2020-10-07] MEDS: APIXABAN 5 MG TABLET PO SCH ×2 (10:53→17:00)
[2020-10-07] MEDS: ZINC SULFATE 220 MG CAPSULE PO SCH (10:53)
[2020-10-07] MEDS: FAMOTIDINE 20 MG TABLET PO SCH ×2 (10:53→21:35)
[2020-10-07] MEDS: CHOLECALCIFEROL (D3) 1,000 UNIT (25 MCG) TABLET PO SCH (10:53)
[2020-10-07] MEDS: ASCORBIC ACID 500 MG TABLET PO SCH ×2 (10:53→17:00)
[2020-10-07] MEDS: INSULIN REG, HUMAN 100 UNIT/ML 3 ML VIAL (PYX) SUBCUT SCH ×3 (14:02→22:00)
--- NOTE | 2020-10-07 17:50 | Progress Note ---
Provider Note Provider Note: Mr. Moran remains clinically stable. His oxygen saturations on 2.5 L per nasal cannula are excellent. I think that he probably tends to desaturate during walking at baseline anyway, because he does have some COPD by history and he is very deconditioned. He does not seem to require any active treatment at this ti me. He is getting dexamethasone but it does not seem to have made much of a difference because he looks about the same as he did a few days after he was admitted previously.
--- NOTE | 2020-10-07 19:46 | EKG REPORT ---
SEVERITY:- ABNORMAL ECG - SINUS TACHYCARDIA PROBABLE LEFT ATRIAL ABNORMALITY : Confirmed by: Nicolle Loya MD 07-Oct-2020 19:45:51
[2020-10-07] MEDS: MELATONIN 5 MG TABLET PO SCH ×2 (22:00→22:30)
[2020-10-08] MEDS: INSULIN REG, HUMAN 100 UNIT/ML 3 ML VIAL (PYX) SUBCUT SCH ×4 (08:27→21:30)
[2020-10-08] MEDS: FAMOTIDINE 20 MG TABLET PO SCH ×2 (09:59→21:32)
[2020-10-08] MEDS: CHOLECALCIFEROL (D3) 1,000 UNIT (25 MCG) TABLET PO SCH (09:59)
[2020-10-08] MEDS: APIXABAN 5 MG TABLET PO SCH ×2 (09:59→18:54)
[2020-10-08] MEDS: ASCORBIC ACID 500 MG TABLET PO SCH ×2 (10:01→18:54)
[2020-10-08] MEDS: ZINC SULFATE 220 MG CAPSULE PO SCH (10:01)
--- NOTE | 2020-10-08 14:30 | PDOC PROGRESS REPORT ---
Subjective Date:: 10/08/20 Subjective:: No adverse events overnight. No new complaints. His oxygen levels this morning on 2 L were 100%. He tells me that he came to the hospital because he was just anxious being home by himself. He has not had any fevers. He has not had any change on his shortness of breath with activity, which was present before he ever got sick to begin with. Reason For Visit: HYPOXIC RESPIRATORY FAILURE/PNEUMONIA DUE COVID 19 Physical Exam Vital Signs: Temp Pulse Resp BP Pulse Ox 97.8 F 72 18 122/71 96 10/08/20 11:20 10/08/20 11:20 10/08/20 11:20 10/08/20 11:20 10/08/20 12:15 Intake & Output 10/07/20 10/08/20 10/09/20 06:59 06:59 06:59 Intake Total 250 440 Output Total 400 Balance 250 40 Weight 162 kg 162.4 kg General appearance: PRESENT: no acute distress, cooperative, disheveled, morbidly obese Respiratory exam: PRESENT: clear to auscultation aminta, symmetrical, unlabored. ABSENT: accessory muscle use, chest wall tenderness, crackles, prolonged expiratory phas, rhonchi, tachypnea, wheezes Cardiovascular exam: PRESENT: RRR, +S1, +S2 Pulses: PRESENT: normal carotid pulses Vascular exam: PRESENT: normal capillary refill GI/Abdominal exam: PRESENT: normal bowel sounds, soft. ABSENT: distended, guarding, rebound, tenderness Extremities exam: ABSENT: clubbing, pedal edema Musculoskeletal exam: PRESENT: normal inspection. ABSENT: deformity Neurological exam: PRESENT: awake, oriented to person, oriented to place, oriented to situation Psychiatric exam: PRESENT: appropriate affect, normal mood Skin exam: PRESENT: dry, warm Results Laboratory Results: 10/07/20 02:37 10/07/20 02:37 Impressions: Chest X-Ray 10/07/20 02:31 IMPRESSION: Findings consistent with bilateral edema and/or pneumonia, differential diagnosis would include viral infections. Assessment and Plan - Diagnosis (1) COPD (chronic obstructive pulmonary disease) Qualifiers: COPD type: chronic bronchitis Chronic bronchitis type: mixed simple and mucopurulent Qualified Code(s): J41.8 - Mixed simple and mucopurulent chronic bronchitis Is this a current diagnosis for this admission?: Yes (2) Hypertension Qualifiers: Hypertension type: essential hypertension Qualified Code(s): I10 - E ssential (primary) hypertension Is this a current diagnosis for this admission?: Yes (3) Morbid obesity with BMI of 50.0-59.9, adult Is this a current diagnosis for this admission?: Yes (4) Non-insulin dependent diabetes mellitus with obesity Is this a current diagnosis for this admission?: Yes (5) Stage III chronic kidney disease Qualifiers: Chronic kidney disease stage 3 subtype: stage 3b (GFR 30-44) Qualified Code(s): N18.32 - Chronic kidney disease, stage 3b Is this a current diagnosis for this admission?: Yes - Plan Summary Summary: Mr. Moran is an anxious man who fortunately had a relatively mild bout of COVID- 19 which was treated during his previous admission. He came back to the hospital because he was anxious being home by himself. He is morbidly obese and deconditioned. He is actually recovering from Covid quite well. I told him that I would monitor him today but if he looks tomorrow like he does today I will send him home. He verbalizes understanding. - Time Time Spent with patient: 15-24 minutes Anticipated Discharge Disposition: Home, Self Care Anticipated Discharge Timeframe: within 24 hours
[2020-10-08] MEDS: MELATONIN 5 MG TABLET PO SCH (21:31)
[2020-10-09] MEDS: INSULIN REG, HUMAN 100 UNIT/ML 3 ML VIAL (PYX) SUBCUT SCH ×2 (08:58→11:30)
[2020-10-09] MEDS: CHOLECALCIFEROL (D3) 1,000 UNIT (25 MCG) TABLET PO SCH (09:37)
[2020-10-09] MEDS: FAMOTIDINE 20 MG TABLET PO SCH (09:37)
[2020-10-09] MEDS: ZINC SULFATE 220 MG CAPSULE PO SCH (09:37)
[2020-10-09] MEDS: ASCORBIC ACID 500 MG TABLET PO SCH (09:37)
[2020-10-09] MEDS: APIXABAN 5 MG TABLET PO SCH (09:37)
[2020-10-09 12:40] VITALS: BP 152/93
--- NOTE | 2020-10-09 16:00 | PDOC DISCHARGE SUMMARY ---
Impression - Admit/DC Date/PCP Admission Date/Primary Care Provider: 10/08/20 08:30 NISHA RAMIREZ Discharge Date: 10/09/20 - Discharge Diagnosis (1) COPD (chronic obstructive pulmonary disease) Is this a current diagnosis for this admission?: Yes (2) Hypertension Is this a current diagnosis for this admission?: Yes (3) Morbid obesity with BMI of 50.0-59.9, adult Is this a current diagnosis for this admission?: Yes (4) Non-insulin dependent diabetes mellitus with obesity Is this a current diagnosis for this admission?: Yes (5) Stage III chronic kidney disease Is this a current diagnosis for this admission?: Yes - Assessment Summary: Mr. Moran is an anxious man who fortunately had a relatively mild bout of COVID- 19 which was treated during his previous admission. He came back to the [facility] because he was anxious being home by himself. He is morbidly obese and deconditioned. He is actually recovering from Covid quite well. I told him that I would monitor him today but if he looks tomorrow like he does today I will send him home. He verbalizes understanding. - Additional Information Resuscitation Status: Full Code Discharge Diet: Cardiac, Diabetic Discharge Activity: Activity As Tolerated, Balance Activity w/Rest, Slowly Increase Activity Referrals: NISHA RAMIREZ MD [Primary Care Provider] - 10/17/20 9:30 am Prescriptions: Glipizide [Glucotrol Xl 5 mg Tab.er] 5 mg PO QAM #30 tab.er.24 Home Medications: Esomeprazole Magnesium [Nexium] 40 mg PO Q6AM 08/30/12 Budesonide/Formoterol Fumarate [Symbicort HFA 160-4.5 mcg Inhaler 6 gm] 2 puff IH Q12 09/26/20 Febuxostat 80 mg PO DAILY 09/26/20 Pravastatin Sodium [Pravachol] 20 mg PO QHS 09/26/20 Apixaban [Eliquis 5 mg Tablet] 5 mg PO Q12 10/07/20 Benzonatate [Tessalon Perles 100 mg Capsule] 100 mg PO Q8HP PRN 10/07/20 Glipizide [Glucotrol Xl 5 mg Tab.er] 5 mg PO QAM #30 tab.er.24 10/09/20 History of Present Illiness History of Present Illness: LAYLA MORAN is a 60 year old male with a history of hypertension, diabetes, CKD 3 and morbid obesity discharged 1 day ago a 10-day Stay where he was admitted for respiratory failure from Covid pneumonia. Patient completed a course of remdesivir and over the course of his hospital stay he improved but he had continued to feel short of breath and had spells of hypoxia with exertion. He was discharged with 2 and half liters intranasal oxygen. But patient reports that after he arrived home shortness of breath continued to get worse especially with exertion while using intranasal oxygen. Today he tried to take a bath but he was unable to due to severe shortness of breath. He states that he was unable to do any of his daily activities including going to the bathroom. He feels lightheaded and short of breath with minimal exertion. Patient states that his is also admitted to hospital due to COVID-19 and there is no one to help him. He denies fever, chest pain, palpitation, nausea, vomiting or diarrhea. Hospital Course Hospital Course: He told me that the reason he came back to the hospital was that he was anxious being home by himself. His overall status has remained stable. His oxygenation on 2 L has been excellent, 98 to 100%. He has been like this the whole time he has been in hospital. We will make sure that he has a piece to put on his CPAP at home that lets him connect his oxygen to it. His labs and exam were reassuring he was discharged in stable condition. Physical Exam Vital Signs: Temp Pulse Resp BP Pulse Ox 98.4 F 77 17 152/93 H 100 10/09/20 12:35 10/09/20 12:35 10/09/20 12:35 10/09/20 12:35 10/09/20 12:35 Intake & Output 10/08/20 10/09/20 10/10/20 06:59 06:59 06:59 Intake Total 440 982 200 Output Total 400 1525 Balance 40 -543 200 Weight 162.4 kg 161.5 kg General appearance: PRESENT: no acute distress, cooperative, disheveled, morbidly obese Respiratory exam: PRESENT: clear to auscultation aminta, symmetrical, unlabored. ABSENT: accessory muscle use, chest wall tenderness, crackles, prolonged expirat ory phas, rhonchi, tachypnea, wheezes Cardiovascular exam: PRESENT: RRR, +S1, +S2 Pulses: PRESENT: normal carotid pulses Vascular exam: PRESENT: normal capillary refill GI/Abdominal exam: PRESENT: normal bowel sounds, soft. ABSENT: distended, guarding, rebound, tenderness Extremities exam: ABSENT: clubbing, pedal edema Musculoskeletal exam: PRESENT: normal inspection. ABSENT: deformity Neurological exam: PRESENT: awake, oriented to person, oriented to place, oriented to situation Psychiatric exam: PRESENT: appropriate affect, normal mood Skin exam: PRESENT: dry, warm Results Laboratory Results: WBC 19.1 10^3/uL (4.0-10.5) H D 10/07/20 02:37 RBC 5.57 10^6/uL (4.35-5.55) H 10/07/20 02:37 Hgb 14.0 g/dL (13.5-17.0) 10/07/20 02:37 Hct 44.0 % (37.9-51.0) 10/07/20 02:37 MCV 79 fl (80-97) L 10/07/20 02:37 MCH 25.1 pg (27.0-33.4) L 10/07/20 02:37 MCHC 31.8 g/dL (32.0-36.0) L 10/07/20 02:37 RDW 17.2 % (11.5-14.0) H 10/07/20 02:37 Plt Count 514 10^3/uL (150-450) H 10/07/20 02:37 Lymph % (Auto) 9.4 % (13-45) L 10/07/20 02:37 Gage % (Auto) 10.5 % (3-13) 10/07/20 02:37 Eos % (Auto) 0.2 % (0-6) 10/07/20 02:37 Baso % (Auto) 0.4 % (0-2) 10/07/20 02:37 Absolute Neuts (auto) 15.2 10^3/uL (1.7-8.2) H 10/07/20 02:37 Absolute Lymphs (auto) 1.8 10^3/uL (0.5-4.7) 10/07/20 02:37 Absolute Monos (auto) 2.0 10^3/uL (0.1-1.4) H 10/07/20 02:37 Absolute Eos (auto) 0.0 10^3/uL (0.0-0.6) 10/07/20 02:37 Absolute Basos (auto) 0.1 10^3/uL (0.0-0.2) 10/07/20 02:37 Seg Neutrophils % 79.5 % (42-78) H 10/07/20 02:37 Sodium 140.8 mmol/L (137-145) 10/07/20 02:37 Potassium 4.9 mmol/L (3.6-5.0) 10/07/20 02:37 Chloride 103 mmol/L (98-107) 10/07/20 02:37 Carbon Dioxide 19 mmol/L (22-30) L 10/07/20 02:37 Anion Gap 19 (5-19) 10/07/20 02:37 BUN 43 mg/dL (7-20) H 10/07/20 02:37 Creatinine 2.17 mg/dL (0.52-1.25) H 10/07/20 02:37 Est GFR ( Amer) 38 (>60) L 10/07/20 02:37 Est GFR (MDRD) Non-Af 31 (>60) L 10/07/20 02:37 Glucose 85 mg/dL (75-110) 10/07/20 02:37 POC Glucose 127 mg/dL (70-110) H 10/09/20 11:11 Calcium 10.3 mg/dL (8.4-10.2) H 10/07/20 02:37 Total Bilirubin 0.4 mg/dL (0.2-1.3) 10/07/20 02:37 Direct Bilirubin 0.1 mg/dL (0.0-0.4) 10/07/20 02:37 Neonat Total Bilirubin Not Reportable 10/07/20 02:37 Neonat Direct Bilirubin Not Reportable 10/07/20 02:37 Neonat Indirect Bili Not Reportable 10/07/20 02:37 AST 102 U/L (17-59) H 10/07/20 02:37 ALT 231 U/L (<50) H 10/07/20 02:37 Alkaline Phosphatase 88 U/L (38-126) 10/07/20 02:37 Total Protein 8.4 g/dL (6.3-8.2) H 10/07/20 02:37 Albumin 4.6 g/dL (3.5-5.0) 10/07/20 02:37 Urine Color YELLOW 10/07/20 08:57 Urine Appearance CLEAR 10/07/20 08:57 Urine pH 5.0 (5.0-9.0) 10/07/20 08:57 Ur Specific Gentry 1.018 10/07/20 08:57 Urine Protein 30 mg/dL (NEGATIVE) H 10/07/20 08:57 Urine Glucose (UA) NEGATIVE mg/dL (NEGATIVE) 10/07/20 08:57 Urine Ketones NEGATIVE mg/dL (NEGATIVE) 10/07/20 08:57 Urine Blood NEGATIVE (NEGATIVE) 10/07/20 08:57 Urine Nitrite NEGATIVE (NEGATIVE) 10/07/20 08:57 Urine Bilirubin NEGATIVE (NEGATIVE) 10/07/20 08:57 Urine Urobilinogen 2.0 mg/dL (<2.0) H 10/07/20 08:57 Ur Leukocyte Esterase NEGATIVE (NEGATIVE) 10/07/20 08:57 Urine WBC (Auto) 1 /HPF 10/07/20 08:57 Urine RBC (Auto) 1 /HPF 10/07/20 08:57 Squamous Epi Cells Auto <1 /HPF 10/07/20 08:57 Urine Mucus (Auto) RARE /LPF 10/07/20 08:57 Urine Ascorbic Acid NEGATIVE (NEGATIVE) 10/07/20 08:57 Impressions: Chest X-Ray 10/07/20 02:31 IMPRESSION: Findings consistent with bilateral edema and/or pneumonia, differential diagnosis would include viral infections. Plan Time Spent: Greater than 30 Minutes Stroke Is this a Stroke Patient?: No Acute Heart Failure Is this a Heart Failure Patient?: No
== END 2020-10-09 15:30 | disposition home or self-care (01) | DRG 177 ==
LOC: ER 23:50 → INTOOBSV 10-07 06:39 → EH 10-07 06:39 → 3N 10-07 14:45 → OBSVTOIN 10-08 08:30
PROVIDERS: ADMIT Student in an Organized Health Care Education/Training Program; ATTEND Family Medicine
DX: U07.1 COVID-19 (principal); J12.89 Other viral pneumonia; N17.9 Acute kidney failure, unspecified; Z68.43 Body mass index [BMI] 50.0-59.9, adult; I13.0 Hypertensive heart and chronic kidney disease with heart failure and stage 1 through stage 4 chronic kidney disease, or unspecified chronic kidney disease; E66.01 Morbid (severe) obesity due to excess calories; E11.22 Type 2 diabetes mellitus with diabetic chronic kidney disease; N18.30 Chronic kidney disease, stage 3 unspecified; I50.9 Heart failure, unspecified; Z99.81 Dependence on supplemental oxygen; Z79.84 Long term (current) use of oral hypoglycemic drugs; Z82.49 Family history of ischemic heart disease and other diseases of the circulatory system; Z83.3 Family history of diabetes mellitus; Z87.891 Personal history of nicotine dependence; Z88.0 Allergy status to penicillin; Z91.013 Allergy to seafood; Z60.2 Problems related to living alone
CPT/HCPCS: 36415; 71045; 80053; 81001; 82962; 85025; 93005; 93010; 94640; 94660; 96374; 99285; G0378; J1100; J1815; J3490; J7050